=== PATIENT | male | born 1945 | race Caucasian/White ===

== ENCOUNTER → 2018-04-11 | Outpatient (CLI) | payer MEDICARE, OTHER ==
[2018-04-11 19:42] LABS: BASO # 0.1 10^3/uL (0.0-0.2); BASO % 1.3 % (0.0-1.0); EOS # 0.4 10^3/uL (0.0-0.50); HEMATOCRIT 44.1 % (42.0-52.0); HEMOGLOBIN 15.1 g/dl (13.5-17.5); IMMATURE GRANULOCYTE % 0.4 % (0-3.0); LYMPH # 1.7 10^3/uL (1.5-4.5); LYMPH % 30.6 % (24.0-44.0); MEAN CORPUSCULAR HEMOGLOBIN 32.1 pg (27.0-33.0); MEAN CORPUSCULAR HGB CONC 34.2 g/dl (32.0-36.5); MEAN CORPUSCULAR VOLUME 93.6 fl (80.0-96.0); MONO # 0.5 10^3/uL (0.0-0.8); MONO % 9.8 % (0.0-5.0); NEUTROPHILS # 2.7 10^3/uL (1.8-7.7); NEUTROPHILS % 49.9 % (36.0-66.0); PLATELET COUNT, AUTOMATED 215 10^3/uL (150-450); RED BLOOD COUNT 4.71 10^6/uL (4.30-6.10); RED CELL DISTRIBUTION WIDTH 12.1 % (11.5-14.5); WHITE BLOOD COUNT 5.5 10^3/uL (4.0-10.0)
[2018-04-11 20:04] LABS: ALBUMIN 3.8 GM/DL (3.2-5.2); ALBUMIN/GLOBULIN RATIO 1.19 (1.00-1.93); ALKALINE PHOSPHATASE 70 U/L (45-117); ALT/SGPT 24 U/L (12-78); ANION GAP 6 MEQ/L (8-16); AST/SGOT 17 U/L (7-37); BILIRUBIN,DIRECT < 0.1 MG/DL (0.0-0.2); BILIRUBIN,TOTAL 0.5 MG/DL (0.2-1.0); BLOOD UREA NITROGEN 22 MG/DL (7-18); CALCIUM LEVEL 8.8 MG/DL (8.8-10.2); CARBON DIOXIDE LEVEL 28 MEQ/L (21-32); CHLORIDE LEVEL 108 MEQ/L (98-107); CREATININE FOR GFR 1.09 MG/DL (0.70-1.30); GLOMERULAR FILTRATION RATE > 60.0 (>42); GLUCOSE, FASTING 77 MG/DL (70-100); POTASSIUM SERUM 4.5 MEQ/L (3.5-5.1); SODIUM LEVEL 142 MEQ/L (136-145)
== END ==
LOC: M WUC 14:56
DX: I10 Essential (primary) hypertension (principal)
CPT/HCPCS: 82248

== ENCOUNTER → 2019-04-21 | Outpatient (CLI) | payer MEDICARE, OTHER ==
[2019-04-21 12:59] LABS: ALBUMIN 3.7 GM/DL (3.2-5.2); ALT/SGPT 29 U/L (12-78); BILIRUBIN,TOTAL 0.4 MG/DL (0.2-1.0); BLOOD UREA NITROGEN 22 MG/DL (7-18); CARBON DIOXIDE LEVEL 28 MEQ/L (21-32); CHLORIDE LEVEL 109 MEQ/L (98-107); CHOLESTEROL LEVEL 251 MG/DL (<200); CHOLESTEROL RISK RATIO 4.048 (<5); CREATININE FOR GFR 1.24 MG/DL (0.70-1.30); GLOMERULAR FILTRATION RATE > 60.0 (>42); GLUCOSE, FASTING 97 MG/DL (70-100); HDL CHOLESTEROL 62 MG/DL (>40); LDL CHOLESTEROL 143 MG/DL (<100); NON-HDL-C 189 MG/DL; POTASSIUM SERUM 4.9 MEQ/L (3.5-5.1); SODIUM LEVEL 140 MEQ/L (136-145); TRIGLYCERIDES LEVEL 229 MG/DL (<150)
== END ==
LOC: M WUC 08:57
PROVIDERS: ATTEND Physician Assistant
DX: I10 Essential (primary) hypertension (principal)

== ENCOUNTER → 2021-02-24 | Outpatient (CLI) | payer MEDICARE, OTHER ==
[2021-02-24 16:31] LABS: ALBUMIN 3.4 GM/DL (3.2-5.2); PERCENT SATURATION 34.4 % (19.7-50.0)
== END ==
LOC: M WUC 10:57
PROVIDERS: ATTEND Orthopaedic Surgery
DX: M25.569 Pain in unspecified knee (principal); Z01.818 Encounter for other preprocedural examination; M17.10 Unilateral primary osteoarthritis, unspecified knee

== ENCOUNTER → 2021-03-03 | Outpatient (REF) | payer MEDICARE, OTHER ==
[2021-03-03 17:18] LABS: APPEARANCE, URINE CLEAR (CLEAR); BACTERIA, URINE AUTO NEGATIVE (NEGATIVE); BILIRUBIN, URINE AUTO NEGATIVE (NEGATIVE); BLOOD, URINE BLOOD NEGATIVE (NEGATIVE); COLOR, URINE YELLOW (YELLOW); GLUCOSE, URINE (UA) AUTO NEGATIVE (NEGATIVE); KETONE, URINE AUTO NEGATIVE (NEGATIVE); LEUKOCYTE ESTERASE, URINE AUTO NEGATIVE (NEGATIVE); MUCUS, URINE SMALL (NEGATIVE); NITRITE, URINE AUTO NEGATIVE (NEGATIVE); PROTEIN, URINE AUTO NEGATIVE (NEGATIVE); RBC, URINE AUTO 0 /HPF (0-3); SPECIFIC GRAVITY URINE AUTO 1.015 (1.002-1.035); SQUAMOUS EPITHELIAL CELL UR AU 0 /HPF (0-6); UROBILINOGEN, URINE AUTO 0.2 mg/dL (0.0-2.0); WBC, URINE AUTO 0 /HPF (0-3)
[2021-03-03 17:57] LABS: INR 0.93; PARTIAL THROMBOPLASTIN TIME 32.1 SECONDS (25.9-37.0); PROTHROMBIN TIME 12.8 SECONDS (12.7-14.5)
== END ==
LOC: M LAB REF 15:53
PROVIDERS: ATTEND Internal Medicine
DX: Z01.812 Encounter for preprocedural laboratory examination (principal)

== ENCOUNTER 2021-03-25 19:00 | Emergency (ER) | payer MEDICARE, OTHER ==
[~2021-03-25] VITALS: Ht 170.2 cm; Wt 93.0 kg
[2021-03-25 19:02] VITALS: BP 170/88
--- OUTSIDE RECORDS SUMMARY | 2021-03-25 19:14 | CCD | Continuity of Care Document ---
Author Author Krzysztof WANG DO Organization Unknown Address [address] [address] Phone [phone] Care Team Providers Care Scarfing Machine Operator Name Role Phone Chas Wang DO AUTM [phone] Problems Description No Information Available Social History Type Date Description Comments Sex Unknown ETOH Use Currently consumes alcohol 1-2 g lasses of wine each day Tobacco Use Start: Unknown End: Unknown Patient is a former smoker Smoked 2 packs a day for 10 years. Quite 45 years ago Allergies, Adverse Reactions, Alerts Active Allergies Criticality Reaction | Severity Comments Date Seasonal Unable to assess criticality 03/03/2021 Medications Active Medications SIG Qnty Indications Ordering Provide r Date Trazodone HCL 100mg Tablets take 2 to 3 tablets by mouth at bedtime 30tabs Chas Wang DO 03/03/2021 Hydrochlorothiazide 12.5mg Capsule s take 1 capsule by mouth daily in the morning for high blood pressure 30caps Chas Wang DO 03/03/2021 History Medications Metoprolol Succinate ER 50mg Tablets ER 24HR 1 by mouth every day 90tabs Chas Wang DO 03/03/2021 - 03/03/2021 Immunizations Description No Information Available Vital Signs Date Vital Result Comment 03/03/2021 9:08am BP Systolic 142 mmHg BP Diastolic 88 mmHg Heart Rate 65 /min Height 67 inches 5'7" Weight 200.00 lb O2 % BldC Oximetry 97 % BMI (Body Mass Index) 31.3 kg/m2 Results Test Acquired Date Facility Test Result H/L Range Note PT & Aptt 03/03/2021 [facility] n[facility] [address] [place] [address] [phone] Prothrombin Time 12.8 seconds Normal 12.7-14.5 Inr 0.93 Normal 1 Partial Thromboplastin Time 32.1 seconds Normal 25.9-37.0 Ua Routine 03/03/2021 [facility] n[facility] [address] [place] [address] [phone] Appearance, Urine CLEAR Normal Clear Color, Urine YELLOW Normal Yellow PH,Urine 6.0 units Normal 5.0-9.0 Specific [place] Urine Auto 1.015 Normal 1.002-1.035 Protein, Urine Auto NEGATIVE mg/dL Normal Negative Glucose, Urine (Ua) Auto NEGATIVE mg/dL Normal Negative Ketone, Urine Auto NEGATIVE mg/dL Normal Negative Urobilinogen, Urine Auto 0.2 mg/dL Normal 0.0-2.0 Bilirubin, Urine Auto NEGATIVE Normal Negative Nitrite, Urine Auto NEGATIVE Normal Negative Leukocyte Esterase, Urine Auto NEGATIVE Normal Negative Blood, Urine Blood NEGATIVE Normal Negative WBC, Urine Auto 0 /HPF Normal 0-3 RBC, Urine Auto 0 /HPF Normal 0-3 Bacteria, Urine Auto NEGATIVE Normal Negative Squamous Epithelial Cell Ur AU 0 /HPF Normal 0-6 Mucus, Urine SMALL Normal Negative Hyaline Cast, Urine Auto 0 /LPF Normal 0-1 Laboratory test finding 03/03/2021 [facility] [address] [place] [address] [phone] Urine Culture FULL REPORT IN L <SEE NOTE> Normal 2 Complete Blood Count 03/03/2021 [facility] Professional Bondsman: [place] [address] [phone] WBC 5.2 x10*3/UL 4.1 - 10.9 RBC 5.09 x10*6/UL 4.20 - 6.30 Hemoglobin 16.1 g/dL 12.0 - 18.0 Hematocrit 46.5 % 37.0 - 51.0 MCV 91.5 fL 80.0 - 97.0 MCH 31.6 pg 26.0 - 32.0 MCHC 34.5 g/dL 31.0 - 38.0 RDW 12.4 % 11.6 - 13.7 PLT 211 x10*3/UL 140 - 440 MPV 8.1 FL 7.8 - 11.0 Lymph % 26.5 % 10.0 - 58.5 Mid % 7.9 % 1.7 - 9.3 Neut % 65.6 % 37.0 - 92.0 Lymph # 1.3 x10*3/UL 0.6 - 4.1 Mid # 0.5 x10*3/UL 0.1 - 0.6 Neut # 3.4 x10*3/UL 2.0 - 7.8 Comprehensive Chem Profile 03/03/2021 [facility] Professional Bondsman: [place] [address] [phone] Glucose 100 mg/dL High 74 - 99 3 BUN 16 mg/dL 7 - 18 Creatinine 1.2 mg/dL 0.6 - 1.3 Sodium 140 mEq/L 136 - 145 Potassium 4.5 mEq/L 3.5 - 5.1 Chloride 106 mEq/L 98 - 107 Carbon Dioxide 28 mEq/L 21 - 32 Calcium 9.3 mg/dL 8.5 - 10.1 Alk. Phosphatase 64 mg/dL 46 - 116 Total Bilirubin 0.7 mg/dL 0.2 - 1.0 Ast (Sgot) 17 U/L 15 - 37 Alt (SGPT) 25 U/L 12 - 78 Albumin 3.8 g/dL 3.4 - 5.0 Total Protein 7.1 g/dL 6.4 - 8.2 A/G Ratio 1.15 CALC 1.00 - 1.90 GFR 59 mL/min Low >60 GFR >= 60 mL/min >60 4 Lipid Profile 03/03/2021 [facility] , Professional Bondsman: [place] [address] [phone] Cholesterol 216 mg/dL High 131 - 200 Triglycerides 145 mg/dL 30 - 150 HDL Cholesterol 74 mg/dL High 35 - 60 LDL (Calculated) 113 CALC 50 - 159 1 THERAPUTIC HUMAN INR VALUES INDICATIONS NORMAL RANGES PROPHYLAXIS/TREATMENT OF: VENOUS THROMBOSIS 2.0-3.0 PULMONARY EMBOLISM 2.0-3.0 PREVENTION OF SYSTEMIC EMBOLISM FROM: TISSUE HEART VALVES 2.0-3.0 ACUTE MYOCARDIAL INFARCTION 2.0-3.0 VALVULAR HEART DISEASE 2.0-3.0 ATRIAL FIBRILLATION 2.0-3.0 MECHANICAL VALVES(HIGH RISK) 2.5-3.5 RECURRENT MYOCARDIAL INFARCTION 2.5-3.5 2 FULL REPORT IN LAB NOTES (eC W and Med[facility]). NO GROWTH 3 100-125 mg/dL PRE-DIABET ES/FASTING >126 mg/dL DIABETES/FASTING 4 CHRONIC KIDNEY DISEASE STAGI NG PER NKF STAGE I & II GFR >= 60 NORMAL TO MILDLY DECREASED STAGE III GFR 30-59 MODERATELY DECREASED STAGE IV GFR 15-29 SEVERELY DECREASED STAGE V GFR <15 VERY LITTLE GFR LEFT ESRD GFR <15 ON BMW SALES CONSULTANT Procedures Description No Information Available Medical Devices Description No Information Available Encounters Description No Information Available Assessments Date Code Description Provider 03/03/2021 I10 Essential (primary) hypertension Chas Wang, 03/03/2021 G47.00 Insomnia, unspecified Jimmy Wang, 03/03/2021 Z00.00 Encounter for genera l adult medical examination without abnormal findings Chas Wang, 03/03/2021 Z01.818 Encounter for other preprocedura l examination Chas Wang DO Plan of Treatment Future Appointment(s):* 03/11/2021 9:00 am - Chas Wang DO at [facility] 03/03/2021 - Chas Wang DO* I10 Essential (primary) hypertension* Comments:* Poorly controlled and not at goal today as well as not taking a first line anti-HTN. Will start HCTZ today, he reports briefly trying lisinopril in the past and did not like how it made him feel. Currently taking 25mg qod of metoprolol so okay to not taper, but he will monitor BP and HR at home. Appt next week to f/u. Otherwise basic labs today to estimate ASCVD. * G47.00 Insomnia, unspecified* Comments:* Well controlled on current regimen. * Z00.00 Encounter for general adult medical examination without abnormal findings* Comments:* Cologuard in the spring. Defers AAA and PSA screening. He lives a generally healthy lifestyle. * Z01.818 Encounter for other preprocedural examination* Comments:* Blood work and urine as requested by surgeon, will do formal Pre-op assessment next week and discuss labs being completed today. * All * New Medication:* Trazodone HCL 100 mg - take 2 to 3 tablets by mouth at bedtime * Hydrochlorothiazide 12.5 mg - take 1 capsule by mouth daily in the morning for high blood pressure * Metoprolol Succinate ER 50 mg - 1 by mouth every day Functional Status Description No Information Available Mental Status Description No Information Available Referrals Description No Information Available
--- OUTSIDE RECORDS SUMMARY | 2021-03-25 19:14 | CCD | Continuity of Care Document ---
Author Organization Unknown Address Unknown Phone Unavailable Problems Description No Information Available Social History Type Date Description Comments Sex Unknown Tobacco Use Start: Unknown Never Used Smokeless Tobacco ETOH Use Consumes 1-2 glasses of wine per day Tobacco Use Start: Unknown End: Unknown Patient is a former smoker Quit 45 years ago, prior 1-2 ppd x 10-15 years Recreational Drug Use Never Used Drugs Smoking Status Reviewed: 10/19/20 Patient is a former smoker Qu it 45 years ago, prior 1-2 ppd x 10-15 years Exercise Type/Frequency Exercises regularly maribell y weight lifting Tattoo/Piercing Tattoo Sun Exposure Uses sunscreen in [place] only Seat Belt/Car Seat Always uses seat belt Bike Helmet Never does not ride a bike Smoke Alarms Yes Smoke Alarms Carbon Monoxide Detector: Yes Allergies, Adverse Reactions, Alerts Description No Known Drug Allergies Medications Active Medications SIG Qnty Indications Ordering Provide r Date Trazodone HCL 100mg Tablets take 2 to 3tablets by mouth at bedtime as needed - please dispense Teva brand 180tabs Nicolasa Stark FNP 01/18/2021 Metoprolol Succinate ER 50mg Tablets ER 24HR Take 1 Tablet By Mouth Every Day 30tabs I10 Gale Otoole M.D. 10/08/2015 Aleve 220mg Tablets 1 by mout h qd Unknown Immunizations CPT Code Status Date Vaccine Lot # [id number] Given 04/24/2019 Influenza Virus Vaccine, Lance drivalent,multidose vial [id number] Given 04/24/2018 Influenza Virus Vaccine, Lance drivalent,multidose vial [id number] Given 11/17/2016 Pneumococcal Vaccine [id number] Given 11/15/2015 Prevnar 13 [id number] Refused 09/27/2017 Zostavax Vital Signs Date Vital Result Comment 10/19/2020 2:15pm BP Systolic 196 mmHg BP Diastolic 98 mmHg BP Systolic Recheck 177 mmHg recheck BP Diastolic Recheck 92 mmHg recheck Heart Rate 55 /min Body Temperature 97.5 F Respiratory Rate 16 /min Height 66.25 inches 5'6.25" Weight 216.25 lb Peak Expiratory Flow Rate 431 Estimated Peak Flow Rate [place] Body Weight 142 lb BMI (Body Mass Index) 34.6 kg/m2 04/19/2020 3:51pm BP Systolic 164 mmHg BP Diastolic 85 mmHg BP Systolic Recheck 152 mmHg recheck BP Diastolic Recheck 80 mmHg recheck Heart Rate 55 /min Body Temperature 96.7 F Respiratory Rate 16 /min Height 66.25 inches 5'6.25" Weight 213.25 lb O2 % BldC Oximetry 98 % Peak Expiratory Flow Rate 433 Estimated Peak Flow Rate [place] Body Weight 142 lb BMI (Body Mass Index) 34.2 kg/m2 Results Test Acquired Date Facility Test Result H/L Range Note Laboratory test finding 02/24/2021 [place] [address] [phone] Hemoglobin 15.6 g/dL Normal 13.5-17.5 Albumin 3.4 GM/DL Normal 3.2-5.2 Total Iron Binding Capacit 02/24/2021 [facility] [place], [place] [id number] [phone] Iron (Fe) 94 g/dL Normal 65-175 Total Iron Binding Capacity 273 g/dL Normal 250-450 Percent Saturation 34.4 % Normal 19.7-50.0 Laboratory test finding 02/24/2021 [place] [address] [phone] Ferritin 167 NG/ML Normal 26-388 Procedures Date Code Description Status 10/19/2020 [address] Office/Outpatient Established Mo d MDM 30-39 Min Completed Medical Devices Description No Information Available Encounters Type Date Location Provider Dx Diagnosis Office Visit 10/19/2020 2:30p Main Office Gale Otoole M.D. I 10 Essential (primary) hypertension G47.00 Insomnia, unspecified Assessments Date Code Description Provider 10/19/2020 I10 Essential (primary) hypertension Gale Otoole M.D. 10/19/2020 G47.00 Insomnia, unspecified Gale Otoole M.D. Plan of Treatment 10/19/2020 - Gale Otoole M.D.* I10 Essential (primary) hypertension* Comments:* discussed adding lisinorpil, advised he is not controlled enough for knee replacement in the fall. States previosuly when he was on lisinopril he took it only for 3 days but stopped because he didnt sleep with it. 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 WE have discussed previously at length that his sleep pattern is expected to change as he ages and hes not likely to get 8 hours of uninterrupted sleep a night. He has previously requested lorazepam and Ambien for sleep and we have discussed that this is only a short term solution. At this time will continue the Trazodone, however patient was advised that by taking meds the way he is he has trained his body to expect meds when he wakes at 3AM. Advised him to break the habit. Goals 10/19/2020 - Gale Otoole M.D.* I10 Essential (primary) hypertension* Blood Pressure not to goal. Monitor it out of the office and bring a list of readings to the follow up appointment. Notify the office if Blood pressure is consistently higher than 140/90. Functional Status Functional Condition Comment Date Status Independent with all IADL's Acti ve Bifocal glasses Active Independent with all ADL's Activ e Complete lower and upper and lower dentures Active Mental Status Mental Condition Comment Date Status None Active Referrals Description No Information Available
--- OUTSIDE RECORDS SUMMARY | 2021-03-25 19:14 | CCD | Continuity of Care Document ---
Author Author Krzysztof WANG DO Organization Unknown Address [address] [address] Phone [phone] Care Team Providers Care Oil Burner Name Role Phone Chas Wang DO AUTM [phone] Problems Description No Information Available Social History [...] Result H/L Range Note Laboratory test finding 03/03/2021 [facility] [address] [place], [place] [id number] [phone] Urine Culture <pending> Complete Blood Count 03/03/2021 [facility] Antique Furniture Repairer: [place] [address] [phone] WBC 5.2 x10*3/UL 4.1 - 10.9 RBC [...] 2.0 - 7.8 Comprehensive Chem Profile 03/03/2021 [facility] Antique Furniture Repairer: [place] [address] [phone] Glucose 100 mg/dL High 74 - 99 1 BUN 16 mg/dL 7 - 18 Creatinine [...] Low >60 GFR >= 60 mL/min >60 2 Lipid Profile 03/03/2021 [facility] Antique Furniture Repairer: [place] [address] [phone] Cholesterol 216 mg/dL High 131 - 200 Triglycerides 145 mg/dL 30 - 150 HDL Cholesterol 74 mg/dL High 35 - 60 LDL (Calculated) 113 CALC 50 - 159 1 100-125 mg/dL PRE-DIABET ES/FASTING >126 mg/dL DIABETES/FASTING 2 CHRONIC KIDNEY DISEASE STAGI NG PER NKF STAGE I & II GFR >= 60 NORMAL TO MILDLY DECREASED STAGE III GFR 30-59 MODERATELY DECREASED STAGE IV GFR 15-29 SEVERELY DECREASED STAGE V GFR <15 VERY LITTLE GFR LEFT ESRD GFR <15 ON GOLD CHARMER Procedures Description No Information Available Medical Devices Description No Information Available Encounters Description No Information Available Assessments Date Code Description Provider 03/03/2021 I10 Essential (primary) hypertension Chas Wang DO 03/03/2021 G47.00 Insomnia, unspecified Jimmy Wang DO 03/03/2021 Z00.00 Encounter for genera l adult medical examination without abnormal findings Chas Wang DO 03/03/2021 Z01.818 Encounter for other preprocedura l examination Chas Wang DO Plan of Treatment Future Appointment(s):* 03/11/2021 9:00 am - Chas Wang DO at [facility] 03/03/2021 - Chas Wang DO* [...]
--- OUTSIDE RECORDS SUMMARY | 2021-03-25 19:14 | CCD | Continuity of Care Document ---
Author Author Krzysztof WANG DO Organization Unknown Address [address] [address] Phone [phone] Care Team Providers Care Cottage Supervisor Name Role Phone Chas Wang DO AUTM [phone] Problems Description No Information Available Social History Type Date Description Comments Sex Unknown ETOH Use Currently consumes alcohol 1-2 g lasses of wine each day Tobacco Use Start: Unknown End: Unknown Patient is a former smoker Smoked 2 packs a day for 10 years. Quite 45 years ago Allergies and adverse reactions Active Allergies Criticality Reaction | Severity Comments Date Seasonal Unable to assess criticality 03/03/2021 Medications Active Medications SIG Qnty Indications Ordering Provide r Date Amlodipine Besylate 5mg Tablets 1 by mouth every day 30tabs Chas Wang DO 03/11/20 21 Trazodone HCL 100mg Tablets take 2 to 3 tablets by mouth at bedtime 30tabs Chas Wang DO 03/03/2021 Metoprolol Tartrate 25mg Tablets 1/2 tablet every other day Unknown 0 History Medications Metoprolol Succinate ER 50mg Tablets ER 24HR 1 by mouth every day 90tabs Chas Wang DO 03/03/2021 - 03/03/2021 Hydrochlorothiazide 12.5mg Capsule s take 1 capsule by mouth daily in the morning for high blood pressure 30caps Chas Wang DO 03/03/2021 - 03/11/2021 Immunizations Description No Information Available Vital Signs Date Vital Result Comment 03/11/2021 8:51am BP Systolic 160 mmHg BP Diastolic 84 mmHg Heart Rate 66 /min Height 67 inches 5'7" Weight 201.00 lb O2 % BldC Oximetry 96 % RM Air BMI (Body Mass Index) 31.5 kg/m2 03/03/2021 9:08am BP Systolic 142 mmHg BP Diastolic 88 mmHg Heart Rate 65 /min Height 67 inches 5'7" Weight 200.00 lb O2 % BldC Oximetry 97 % BMI (Body Mass Index) 31.3 kg/m2 Results Test Acquired Date Facility Test Result H/L Range Note PT & Aptt 03/03/[address] [address] [phone] Prothrombin Time 12.8 seconds Normal 12.7-14.5 Inr 0.93 Normal 1 Partial Thromboplastin Time 32.1 seconds Normal 25.9-37.0 Ua Routine 03/03/[address] [address] [phone] Appearance, Urine CLEAR Normal Clear Color, Urine YELLOW Normal Yellow PH,Urine 6.0 units Normal 5.0-9.0 Specific [place] Urine Auto 1.015 Normal 1.002-1.035 Protein, Urine [...] /LPF Normal 0-1 Laboratory test finding 03/03/2021 [facility] [address] [place] [address] [phone] Urine Culture FULL REPORT IN L <SEE NOTE> Normal 2 Complete Blood Count 03/03/2021 [facility] Stenotypist: [place] [address] [phone] WBC 5.2 x10*3/UL 4.1 - 10.9 RBC [...] 2.0 - 7.8 Comprehensive Chem Profile 03/03/2021 [facility], Stenotypist: [place] [address] [phone] Glucose 100 mg/dL High 74 - 99 [...] 60 mL/min >60 4 Lipid Profile 03/03/2021 [facility] , Stenotypist: [place] [address] [phone] Cholesterol 216 mg/dL High 131 - 200 [...] LITTLE GFR LEFT ESRD GFR <15 ON CUTTING TABLE OPERATOR FIRST Procedures Description No Information Available Medical Devices Description No Information Available Encounters Description No Information Available Assessments Date Code Description Provider 03/11/2021 Z01.810 Encounter for preprocedural card iovascular examination Chas Wang, 03/11/2021 M17.0 Bilateral primary osteoarthritis of knee Chas Wang, 03/11/2021 I10 Essential (primary) hypertension Chas Wang, 03/03/2021 I10 Essential (primary) hypertension Chas Wang, DO 03/03/2021 G47.00 Insomnia, unspecified Jimmy Wang, DO 03/03/2021 Z00.00 Encounter for genera l adult medical examination without abnormal findings Chas Wang, 03/03/2021 Z01.818 Encounter for other preprocedura l examination Chas Wang DO Plan of Treatment Future Appointment(s):* 05/11/2021 9:40 am - Chas Wang DO at [facility] 03/11/2021 - Chas Wang DO* Z01.810 Encounter for preprocedural cardiovascular examination * M17.0 Bilateral primary osteoarthritis of knee * I10 Essential (primary) hypertension* Comments:* Poorly controlled and not at goal today as well as not taking a first line anti-HTN. Will start amlodipine today, he reports briefly trying lisinopril in the past and did not like how it made him feel, this also occurred with HCTZ. If unable to tolerate amlodipine, then asked they he restart metoprolol perioperatively, until we can discuss. His 10 yr ASCVD risk is over 30%, he defers statin at this time. * All * New Medication:* Amlodipine Besylate 5 mg - 1 by mouth every day Functional Status Description No Information Available Mental Status Description No Information Available Referrals Description No Information Available
--- OUTSIDE RECORDS SUMMARY | 2021-03-25 19:14 | CCD | Continuity of Care Document ---
Author Author Krzysztof WANG DO Organization Unknown Address [address] [address] Phone [phone] Care Team Providers Care Outside Medical Sales Representative Name Role Phone Chas Wang DO AUTM [phone] Problems Description No Information Available Social History [...] the morning for high blood pressure 30caps hCas Wang DO 03/03/2021 - 03/11/2021 Immunizations Description [...] H/L Range Note PT & Aptt 03/03/[address] [address] [phone] Prothrombin Time 12.8 seconds Normal 12.7-14.5 Inr 0.93 Normal 1 Partial Thromboplastin Time 32.1 seconds Normal 25.9-37.0 Ua Routine 03/03/[address] [address] [phone] Appearance, Urine CLEAR Normal Clear Color, Urine YELLOW Normal Yellow PH,Urine 6.0 units Normal 5.0-9.0 Specific [place] Urine Auto 1.015 Normal 1.002-1.035 Protein, Urine [...] /LPF Normal 0-1 Laboratory test finding 03/03/2021 [facility] [address] [place] [address] [phone] Urine Culture FULL REPORT IN L <SEE NOTE> Normal 2 Complete Blood Count 03/03/2021 [facility] Press Operator [employer] Print Shop: [place] [address] [phone] WBC 5.2 x10*3/UL 4.1 - 10.9 RBC [...] 2.0 - 7.8 Comprehensive Chem Profile 03/03/2021 [facility], Press Operator [employer]: [place] [address] [phone] Glucose 100 mg/dL High 74 - 99 [...] 60 mL/min >60 4 Lipid Profile 03/03/2021 [facility] , Press Operator [employer] Print Shop: [place] [address] [phone] Cholesterol 216 mg/dL High 131 - 200 [...] LITTLE GFR LEFT ESRD GFR <15 ON SHOVEL LOG LOADER OPERATOR Procedures Description No Information Available Medical Devices [...] 9:40 am - Chas Wang DO at [facility] 03/11/2021 - Chas Wang DO* [...]
--- OUTSIDE RECORDS SUMMARY | 2021-03-25 19:14 | CCD | Continuity of Care Document ---
Author Author Krzysztof WANG DO Organization Unknown Address [address] [address] Phone [phone] Care Team Providers Care Rn Pacu Name Role Phone Chas Wang DO AUTM [phone] Problems Description No Information Available Social History [...] H/L Range Note Laboratory test finding 03/03/2021 [facility] [address] [place] [address] [phone] Urine Culture <pending> Procedures Description No Information Available Medical Devices [...] 9:00 am - Chas Wang DO at [facility] 03/03/2021 - Chas Wang DO* [...]
--- OUTSIDE RECORDS SUMMARY | 2021-03-25 19:15 | CCD ---
Author Author [facility] Organization [facility] Address Unknown Phone Unavailable Care Team Providers Care Tube Fitter Name Role Phone Xiang, Vesna Beasley MD Unavailable Unavailable Xiang, Vesna Beasley MD Unavailable Unavailable Xiang, Vesna Beasley MD Unavailable Unavailable Xiang, Vesna Beasley MD Unavailable Unavailable Xiang, Vesna Beasley MD Unavailable Unavailable Xiang, Vesna Beasley MD Unavailable Unavailable Xiang, Vesna Beasley MD Unavailable Unavailable Xiang, Vesna Beasley MD Unavailable Unavailable Xiang, Vesna Beasley MD Unavailable Unavailable Xiang, Vesna Beasley MD Unavailable Unavailable Xiang, Vesna Beasley MD Unavailable Unavailable Xiang, Vesna Beasley MD Unavailable Unavailable Xiang, Vesna Beasley MD Unavailable Unavailable Xiang, Vesna Beasley MD Unavailable Unavailable Xiang, Vesna Beasley MD Unavailable Unavailable Xiang, Vesna Beasley MD Unavailable Unavailable Xiang, Vesna Beasley MD Unavailable Unavailable Xiang, Vesna Beasley MD Unavailable Unavailable Xiang, Vesna Beasley MD Unavailable Unavailable Xiang, Vesna Beasley MD Unavailable Unavailable Xiang, Vesna Beasley MD Unavailable Unavailable Xiang, Vesna Beasley MD Unavailable Unavailable Xiang, Vesna Beasley MD Unavailable Unavailable Xiang, Vesna Beasley MD Unavailable Unavailable Xiang, Vesna Beasley MD Unavailable Unavailable Xiang, Vesna Beasley MD Unavailable Unavailable Xiang, Vesna Beasley MD Unavailable Unavailable Xiang, Vesna Beasley MD Unavailable Unavailable Xiang, Vesna Beasley MD Unavailable Unavailable Xiang, Vesna Beasley MD Unavailable Unavailable Xiang, Vesna Beasley MD Unavailable Unavailable Xiang, Vesna Beasley MD Unavailable Unavailable Xiang, Vesna Beasley MD Unavailable Unavailable Xiang, Vesna Beasley MD Unavailable Unavailable Xiang, Vesna Beasley MD Unavailable Unavailable Xiang, Vesna Beasley MD Unavailable Unavailable Xiang, Vesna Beasley MD Unavailable Unavailable Xiang, Vesna Beasley MD Unavailable Unavailable Xiang, Vesna Beasley MD Unavailable Unavailable Xiang, Vesna Beasley MD Unavailable Unavailable Xiang, Vesna Beasley MD Unavailable Unavailable Xiang, Vesna Beasley MD Unavailable Unavailable Xiang, Vesna Beasley MD Unavailable Unavailable Xiang, Vesna Beasley MD Unavailable Unavailable Xiang, Vesna Beasley MD Unavailable Unavailable Xiang, Vesna Beasley MD Unavailable Unavailable Xiang, A Gale LAMAR Unavailable Unavailable Xiang, A Gale LAMAR Unavailable Unavailable Xiang, A Gale LAMAR Unavailable Unavailable Xiang, A Gale LAMAR Unavailable Unavailable Xiang, A Gale MD Unavailable Unavailable Xiang, A Gale MD Unavailable Unavailable Xiang, A Gale MD Unavailable Unavailable Xiang, A Gale MD Unavailable Unavailable Xiang, A Gale MD Unavailable Unavailable Xiang, A Gale MD Unavailable Unavailable Xiang, A Gale MD Unavailable Unavailable Xiang, A Gale MD Unavailable Unavailable Xiang, A Gale MD Unavailable Unavailable Xiang, A Gale MD Unavailable Unavailable Xiang, A Gale MD Unavailable Unavailable Xiang, A Gale MD Unavailable Unavailable Xiang, A Gale MD Unavailable Unavailable Xiang, A Gale MD Unavailable Unavailable Xiang, A Gale MD Unavailable Unavailable Xiang, A Gale MD Unavailable Unavailable Xiang, A Gale MD Unavailable Unavailable Xiang, A Gale MD Unavailable Unavailable Xiang, A Gale MD Unavailable Unavailable Xiang, A Gale MD Unavailable Unavailable Xiang, A Gale LAMAR Unavailable Unavailable Xiang, A Gale LAMAR Unavailable Unavailable Xiang, A Gale LAMAR Unavailable Unavailable Xiang, A Gale LAMAR Unavailable Unavailable Xiang, A Gale LAMAR Unavailable Unavailable Xiang, A Gale LAMAR Unavailable Unavailable Xiang, A Gale LAMAR Unavailable Unavailable Xiang, A Gale LAMAR Unavailable Unavailable Xiang, A Gale LAMAR Unavailable Unavailable Xiang, A Gale LAMAR Unavailable Unavailable Xiang, A Gale LAAMR Unavailable Unavailable Xiang, Vesna Beasley MD Unavailable Unavailable Taniya Ball MD Unavailable Unavailable Taniya Ball MD Unavailable Unavailable Taniya Ball MD Unavailable Unavailable Taniya Ball MD Unavailable Unavailable Taniya Ball MD Unavailable Unavailable Taniya Ball MD Unavailable Unavailable Taniya Ball MD Unavailable Unavailable Taniya Ball MD Unavailable Unavailable Taniya Ball MD Unavailable Unavailable Taniya Ball MD Unavailable Unavailable Taniya Ball MD Unavailable Unavailable Taniya Ball MD Unavailable Unavailable Taniya Ball MD Unavailable Unavailable Taniya Ball MD Unavailable Unavailable Taniya Ball MD Unavailable Unavailable Taniya Ball MD Unavailable Unavailable Taniya Ball MD Unavailable Unavailable Taniya Ball MD Unavailable Unavailable Taniya Ball MD Unavailable Unavailable Taniya Ball MD Unavailable Unavailable Taniya Ball MD Unavailable Unavailable Greenky, S Nirav MD Unavailable Unavailable Greenky, S Nirav MD Unavailable Unavailable Greenky, S Nirav MD Unavailable Unavailable Greenky, S Nirav MD Unavailable Unavailable Greenky, S Nirav MD Unavailable Unavailable Greenky, S Nirav MD Unavailable Unavailable Greenky, S Nirav MD Unavailable Unavailable Greenky, S Nirav MD Unavailable Unavailable Greenky, S Nirav MD Unavailable Unavailable Greenky, S Nirav MD Unavailable Unavailable Greenky, S Nirav MD Unavailable Unavailable Greenky, S Nirav MD Unavailable Unavailable Greenky, S Nirav MD Unavailable Unavailable Greenky, S Nirav MD Unavailable Unavailable Greenky, S Nirav MD Unavailable Unavailable Greenky, S Nirav MD Unavailable Unavailable Greenky, S Nirav MD Unavailable Unavailable Greenky, S Nirav MD Unavailable Unavailable Greenky, S Nirav MD Unavailable Unavailable Greenky, S Nirav MD Unavailable Unavailable Greenky, S Nirav MD Unavailable Unavailable Greenky, S Nirav MD Unavailable Unavailable Greenky, S Nirav MD Unavailable Unavailable Greenky, S Nirav MD Unavailable Unavailable Greenky, S Nirav MD Unavailable Unavailable Greenky, S Nirav MD Unavailable Unavailable Greenky, S Nirav MD Unavailable Unavailable Greenky, S Nirav MD Unavailable Unavailable Greenky, S Nirav MD Unavailable Unavailable Greenky, S Nirav MD Unavailable Unavailable Greenky, S Nirav MD Unavailable Unavailable Greenky, S Nirav MD Unavailable Unavailable Greenky, S Nirav MD Unavailable Unavailable Greenky, S Nirav MD Unavailable Unavailable Greenky, S Nirav MD Unavailable Unavailable Greenky, S Nirav MD Unavailable Unavailable Greenky, S Nirav MD Unavailable Unavailable Greenky, S Nirav MD Unavailable Unavailable Greenky, S Nirav MD Unavailable Unavailable Greenky, S Nirav MD Unavailable Unavailable Greenky, S Nirav MD Unavailable Unavailable Greenky, S Nirav MD Unavailable Unavailable Greenky, S Nirav MD Unavailable Unavailable Greenky, S Nirav MD Unavailable Unavailable Greenky, S Nirav MD Unavailable Unavailable Greenky, S Nirav MD Unavailable Unavailable Greenky, S Nirav MD Unavailable Unavailable Greenky, S Nirav MD Unavailable Unavailable Greenky, S Nirav MD Unavailable Unavailable Greenky, S Nirav MD Unavailable Unavailable Greenky, S Nirav MD Unavailable Unavailable Greenky, S Nirav MD Unavailable Unavailable Greenky, S Nirav MD Unavailable Unavailable Greenky, S Nirav MD Unavailable Unavailable Greenky, S Nirav MD Unavailable Unavailable Greenky, S Nirav MD Unavailable Unavailable Greenky, S Nirav MD Unavailable Unavailable Greenky, S Nirav MD Unavailable Unavailable Greenky, S Nirav MD Unavailable Unavailable Greenky, S Nirav MD Unavailable Unavailable Greenky, S Nirav MD Unavailable Unavailable Greenky, S Nirav MD Unavailable Unavailable Greenky, S Nirav MD Unavailable Unavailable Greenky, S Nirav MD Unavailable Unavailable Greenky, S Nirav MD Unavailable Unavailable Greenky, S Nirav MD Unavailable Unavailable Greenky, S Nirav MD Unavailable Unavailable Greenky, S Nirav MD Unavailable Unavailable Re-disclosure Warning The records that you are about to access may contain information from federally-assisted alcohol or drug abuse programs. If such information is present, then the following federally mandated warning applies: This information has been disclosed to you from records protected by federal confidentiality rules (42 CFR part 2). The federal rules prohibit you from making any further disclosure of this information unless further disclosure is expressly permitted by the written consent of the person to whom it pertains or as otherwise permitted by 42 CFR part 2. A general authorization for the release of medical or other information is NOT sufficient for this purpose. The Federal rules restrict any use of the information to criminally investigate or prosecute any alcohol or drug abuse patient.The records that you are about to access may contain highly sensitive health information, the redisclosure of which is protected by Article 27-F of the [facility] Public Health law. If you continue you may have access to information: Regarding HIV / AIDS; Provided by facilities licensed or operated by the [facility] Office of Mental Health; or Provided by the [facility] Office for People With Developmental Disabilities. If such information is present, then the following [facility] mandated warning applies: This information has been disclosed to you from confidential records which are protected by state law. State law prohibits you from making any further disclosure of this information without the specific written consent of the person to whom it pertains, or as otherwise permitted by law. Any unauthorized further disclosure in violation of state law may result in a fine or senior living sentence or both. A general authorization for the release of medical or other information is NOT sufficient authorization for further disc losure. Family History Family Member Name Family Member Gender Family Member Status Date o f Status Description Data Source(s) Unknown Unknown Problem [facility] ([facility] Unknown Female Problem [facility] ([facility]) Encounters Encounter Providers Location Date Indications Data Source(s ) Outpatient Attender: Nirav Ball MDReferrer: Gale floyd MD 03/16/2021 05:07:46 PM EDT [facility] Recurring Patient Attender: Nirav Ball MDReferrer: Gale Clark ams, MD 03/16/2021 01:22:29 PM EDT [facility] Rec[facility] Patient Attender: Nirav Ball MDReferrer: Gale Clark ams, MD 02/23/2021 06:17:47 AM EDT [facility] Outpatient Attender: Nirav Ball MDReferrer: Gale floyd MD 02/01/2021 06:57:35 AM EDT [facility] Recurring Patient Attender: Nirav Ball MDReferrer: Gale Clark ams, MD 01/31/2021 01:18:23 PM EDT [facility] Recurring Patient Attender: Nirav Ball MDReferrer: Gale Clark ams, MD 01/31/2021 01:13:35 PM EDT [facility] Recurring Patient Attender: Nirav Ball MDReferrer: Gale Clark ams, MD 01/27/2021 03:33:02 PM EDT [facility] Recurring Patient Attender: Nirav Ball MDReferrer: Gale Clark ams, MD 01/27/2021 03:28:53 PM EDT [facility] Outpatient Attender: Gale Otoole MD Main Office 10/19/2020 02:30:0 0 PM EDT [facility] ([facility] Outpatient Attender: Gale Otoole MD Main Office 04/19/2020 02:30:0 0 PM EST [facility] ([facility] Immunizations Vaccine Date Status Description Data Source(s) COVID-19 VACCINE Moderna 08/23/2020 12:00:00 AM EDT completed [facility] Vaccine Series Complete: YESThis Data wa s Submitted to [facility] Via [employer]. COVID-19 VACCINE, MRNA-1273, LNP-S (MODERNA)/PF 08/23/2020 1 2:00:00 AM EDT completed [facility] COVID-19 VACCINE Moderna 07/23/2020 12:00:00 AM EST completed [facility] Vaccine Series Complete: NOThis Data was Submitted to [facility] Via [employer]. COVID-19 VACCINE, MRNA-1273, LNP-S (MODERNA)/PF 07/23/2020 1 2:00:00 AM EST completed [facility] Medications Medication Brand Name Start Date Product Form Dose Route Admi nistrative Instructions Pharmacy Instructions Status Indications Reaction Description Data Source(s) Amlodipine 5 MG Oral Tablet Amlodipine Besylate 03/11/2021 12:00:00 A M EDT ORAL active [facility] ([facility]) 24 HR metoprolol succinate 50 MG Extended Release Oral Tablet Metoprolol Succinate ER 03/03/2021 12:00:00 AM EDT ORAL completed [facility] ([facility]) Hydrochlorothiazide 12.5 MG Oral Capsule Hydrochlorothiazide 03/03/2021 12:00:00 AM EDT ORAL completed [facility] ([facility]) Trazodone Hydrochloride 100 MG Oral Tablet Trazodone HCL 03/03/2021 12:00:00 AM EDT ORAL active [facility] ([facility]) Trazodone Hydrochloride 100 MG Oral Tablet Trazodone HCL 01/18/2021 12:00:00 AM EDT ORAL active [facility] ([facility] Insurance Providers Payer name Policy type / Coverage type Policy ID Covered libertarian ID Covered libertarian's relationship to quiroga Policy [place] Plan Information [employer] [id number] Lali [id number] MEDICARE [id number] Lali [id number] A [employer] (pr) Medigap Part B [id number] Self [id number] [employer] (pr) Medigap Part B [id number] Self [id number] DME Jurisdiction A [facility] C [id number] SELF [id number] Medicare C [id number] SELF [id number] A DME A [place] C [id number] SELF [id number] Medicare C [id number] SELF [id number] Medicare C [id number] SELF [id number] A DME Jurisdiction A NHIC C [id number] SELF [id number] [place] [id number] Self 0 [id number] Medicare [place] Medicare Primary [id number] Self [id number] Medicare [place] Medicare Primary [id number] Self [id number] [employer] / UMR F [id number] SELF [id number] 2 [employer] (pr) Medigap Part B [id number] [id number] Self [id number] UMR F [id number] SELF [id number] UMR F [id number] SELF [id number] UMR F [id number] SELF [id number] 0 [employer] Medigap Part B [id number] 08.0 Self [id number] [place] Medicare Primary [id number] Self [id number] [employer] Medigap Part B [id number] 08.0 Self [id number] Medicare [place] Medicare Primary [id number] Self [id number] [employer] Medigap Part B [id number] Self Medicare [place] Medicare Primary [id number] Self [employer] (pr) Medigap Part B [id number] Self Medicare [place] Primary [id number] Self [employer] [id number] SP [id number] MEDICARE [id number] SP [id number] [id number] [employer] [id number] SP [id number] [facility] [id number] SP [id number] Umr Medigap Part B [id number] Self [id number] Medicare [place] Medicare Primary [id number] Self [id number] r Medigap Part B [id number] 08.0 Self [id number] Medicare [place] Medicare Primary [id number] Self [id number] r Medigap Part B [id number] 08.0 Self [id number] Medicare [place] Medicare Primary [id number] Self [id number] MEDICARE [id number] SP [id number] A r Medigap Part B [id number] 08.0 Self [id number] Medicare [place] Medicare Primary [id number] Self [id number] [employer] Medigap Part B [id number] 08.0 Self [id number] Medicare [place] Medicare Primary [id number] Self [id number] Medicare Dme Supplies Medigap Part B [id number] Self [id number] Medicare Dme Supplies Medigap Part B [id number] Self [id number] Medicare Dme Supplies Medigap Part B [id number] Self [id number] [facility] [id number] 08.0 Self [id number] Medicare [place] Medicare Primary [id number] Self [id number] Problems, Conditions, and Diagnoses No Information Surgeries/Procedures Procedure Description Date Indications Data Source(s) OFFICE OUTPATIENT VISIT 25 MINUTES 10/19/2020 12:00:00 AM EDT [facility] ([facility] Results ID Date Data Source [id number] 03/16/2021 05:07:46 PM EDT [facility]: Celina LeDOB: 1945Provider: Lida Ball: 03/16/2021 Reason For VisitCelina Le is here today for Right Knee. Patient denies any symptoms of or pending results for COVID 19 or contact with anyone with COVID 19. Celina had his second Covid vaccine on 09/2020. Celina Le is here for a history and physical. Surgery Description: RTKA. Expected DOS: 03/21/2021. Patient is retired. AssessmentREASON FOR VISIT:Upcoming right total knee replacement This 75-year-old male had his left knee done seven years ago, with a good result. His right knee has become increasingly stiff and painful. It interferes with activities of daily living. X-rays confirm severe tricompartmental osteoarthritis of the right knee.PAST MEDICAL HISTORY:Please see intake. Hypertension. Left total knee replacement seven years ago. Right knee scope in 1992. The rest of the history is as per the intake. He is a Religion and does not want any blood products.PHYSICAL EXAMINATION:He is 5'7 and weighs 200 pounds. He is alert, awake and oriented, with appropriate mood and affect. No edema or varicosities. Pulses are intact. Sensory and motor are fineLeft knee motion is from 0 to 140, with a healed incision.The right knee has an impressive varus deformity of about 12 degrees, with 2+ medial laxity. Motion is from about +5 to 115. Good motion of the hip. No effusion. Skin is fine. X-RAYS:X-rays, taken previously, are impressive for lnxy-eb-xoqe medial compartment arthritis, calcification under the MCL and lateralization of the tibia.IMPRESSION:Severe primary/secondary osteoarthritis of the right knee, for a right total knee replacement, to be done as an outpatient. He viewed the video and had no specific questions. We talked about the anesthesia, wound closure and therapy. We talked about risks, including, but not limited to remove chance of infection, blood clot, stiffness and loosening, .etc. He read and signed the permit. I will see him there. I asked the patient, after viewing the video, about any further questions or concerns. The patient verbalized full understanding of the potential risks, benefits, and alternative to the proposed procedure. The patients questions about total knee replacement were reviewed with me and answers provided. Plan Start: Celecoxib 200 MG Oral Capsule (CeleBREX); TAKE 1 CAPSULE Every twelve hours Rx By: Nirav Ball; Dispense: 14 Days ; #:28 Capsule; Refill: 0;For: Preoperative examination; CAROL = N; Verified Transmission to [facility]; Msg to Pharmacy: Begin the morning of Post Op Day #4, after Toradol has been discontinued; Last Updated By: Israel Linn; 03/16/2021 1:47:48 PM Start: Hibiclens 4 % External Liquid; USE DIRECTED Rx By: Nirav Ball; Dispense: 0 Days ; #:2 X 118 ML Bottle; Refill: 0;For: Preoperative examination; CAROL = N; Verified Transmission to [facility]; Msg to Pharmacy: Use as directed per instruction sheet for total of 2 showers: 1 shower night before surgery and 1 shower morning of surgery; Last Updated By: [facility]Palm; 03/16/2021 1:47:49 PM Start: Ketorolac Tromethamine 10 MG Oral Tablet; take 1 tablet every 8 hours Rx By: Nirav Ball; Dispense: 4 Days ; #:10 Tablet; Refill: 0;For: Preoperative examination; CAROL = N; Verified Transmission to [facility]; Msg to Pharmacy: Begin the evening of Surgery Day, discontinue after the last dose on Post Op Day #3. First dose to be given intra-operatively.; Last Updated By: Angelina LinnPalm; 03/16/2021 1:47:50 PM Signatures Electronically signed by : Shelbie Ortega, ; Mar 16 2021 2:51PM EST Electronically signed by : Nirav Ball M.D.; Mar 16 2021 5:07PM EST Name Value Range Interpretation Code Description Data Julieth rce(s) Supporting Document(s) ID Date Data Source [id number] 03/16/2021 12:23:00 PM EDT [facility] Name Value Range Interpretation Code Description Data Julieth rce(s) Supporting Document(s) SARS-CoV-2 RNA Resp Ql SABRA+probe Negative [facility] This lab was ordered by [facility] and reported by registracija vozila. ID Date Data Source [id number] 03/03/2021 09:57:00 AM EDT [facility] ([facility]) Name Value Range Interpretation Code Description Data Julieth rce(s) Supporting Document(s) Bacteria identified in Urine by Culture Laboratory test result [facility] ([facility]) FULL REPORT IN LAB NOTES ([facility] and [facility] ). NO GROWTH ID Date Data Source [id number] 03/03/2021 09:57:00 AM EDT [facility] ([facility]) Name Value Range Interpretation Code Description Data Julieth rce(s) Supporting Document(s) Appearance, Urine Laboratory test result [facility] ([facility]) Color, Urine Laboratory test result MEDE NT ([facility]) Specific [place] Urine Auto 1.015 1.002-1.035 [facility] ([facility]) Protein, Urine Auto Laboratory test [facility] PH,Urine 6.0 units 5.0-9.0 [facility] ([facility]) Glucose, Urine (Ua) Auto Laboratory test result [facility] Ketone, Urine Auto Laboratory test result [facility] Bilirubin, Urine Auto Laboratory test result [facility] Urobilinogen, Urine Auto 0.2 mg/dL 0.0-2.0 [facility] T [facility] Nitrite, Urine Auto Laboratory test result [facility] Leukocyte Esterase, Urine Auto [facility] Blood, Urine Blood [facility] RBC, Urine Auto 0 /HPF 0-3 [facility] ([facility]) WBC, Urine Auto 0 /HPF 0-3 [facility] ([facility]) Bacteria, Urine Auto Laboratory test result [facility] Squamous Epithelial Cell Ur AU 0 /HPF 0-6 [facility] Mucus, Urine Laboratory test result [facility] Hyaline Cast, Urine Auto 0 /LPF 0-1 [facility] ID Date Data Source [id number] 03/03/2021 09:57:00 AM EDT [facility] Name Value Range Interpretation Code Description Data Julieth rce(s) Supporting Document(s) Prothrombin Time 12.8 s 12.7-14.5 [facility] Inr 0.93 [facility] ([facility]) THERAPUTIC HUMAN INR VALUES INDICATIONS NORMAL RANGES PROPHYLAXIS/TREATMENT OF: VENOUS THROMBOSIS 2.0-3.0 PULMONARY EMBOLISM 2.0-3.0 PREVENTION OF SYSTEMIC EMBOLISM FROM: TISSUE HEART VALVES 2.0-3.0 ACUTE MYOCARDIAL INFARCTION 2.0-3.0 VALVULAR HEART DISEASE 2.0-3.0 ATRIAL FIBRILLATION 2.0-3.0 MECHANICAL VALVES(HIGH RISK) 2.5-3.5 RECURRENT MYOCARDIAL INFARCTION 2.5-3.5 Partial Thromboplastin Time 32.1 s 25.9-37.0 [facility] ([facility]) ID Date Data Source [id number] 03/03/2021 09:55:00 AM EDT [facility] ([facility]) Name Value Range Interpretation Code Description Data Julieth rce(s) Supporting Document(s) Triglyceride [Mass/volume] in Serum or Plasma 145 mg/dL 30-150 [facility] ([facility]) Cholesterol in HDL [Mass/volume] in Serum or Plasma 74 mg/dL 35-60 [facility] [facility] Cholesterol [Mass/volume] in Serum or Plasma 216 mg/dL 131-200 [facility] ([facility]) Cholesterol in LDL [Mass/volume] in Serum or Plasma by calcu lation 113 CALC 50-159 [facility] ([facility]) ID Date Data Source [id number] 03/03/2021 09:55:00 AM EDT [facility] ([facility]) Name Value Range Interpretation Code Description Data Julieth rce(s) Supporting Document(s) Glucose [Mass/volume] in Serum or Plasma 100 mg/dL 74-99 [facility] ([facility]) 100-125 mg/dL PRE-DIABETES/FASTING >126 mg/dL DIABETES/FASTING Urea nitrogen [Mass/volume] in Serum or Plasma 16 mg/dL 7-18 [facility] ([facility]) Creatinine 1.2 mg/dL 0.6-1.3 [facility] Sodium [Moles/volume] in Serum or Plasma 140 meq/L 136-145 [facility] ([facility]) Potassium [Moles/volume] in Serum or Plasma 4.5 meq/L 3.5-5.1 [facility] ([facility]) Chloride [Moles/volume] in Serum or Plasma 106 meq/L 98-107 [facility] ([facility]) Carbon dioxide, total [Moles/volume] in Serum or Plasma 28 meq/L 21 -32 [facility] ([facility]) Alkaline phosphatase isoenzyme [Units/volume] in Serum or Pl asma 64 mg/dL 46-116 [facility] ([facility]) Calcium [Mass/volume] in Serum or Plasma 9.3 mg/dL 8.5-10.1 [facility] ([facility]) Total Bilirubin 0.7 mg/dL 0.2-1.0 [facility] ([facility]) Aspartate aminotransferase [Enzymatic activity/volume] in Serum or Plasma 17 U/L 15-37 [facility] ([facility] ) Alanine aminotransferase [Enzymatic activity/volume] in Seru m or Plasma 25 U/L 12-78 [facility] ([facility]) Albumin [Mass/volume] in Serum or Plasma 3.8 g/dL 3.4-5.0 [facility] ([facility]) A/G Ratio 1.15 CALC 1.00-1.90 [facility] [facility] Proteinase 3 Ab [Units/volume] in Serum 7.1 g/dL 6.4-8.2 [facility] ([facility]) Glomerular filtration rate/1.73 sq M pre dicted among blacks [Volume Rate/Area] in Serum or Plasma by Creatinine-based formula (MDRD) Laboratory test result [facility] [facility] <content>CHRONIC KIDNEY DISEASE STAGING PER NK[facility]</content>
<content></content>
<content>STAGE I & II GFR >= 60 NORMAL TO MILDLY DECREASED</content>
<content>STAGE III GFR 30-59 MODERATELY DECREASED</content>
<content>STAGE IV GFR 15-29 SEVERELY DECREASED</content>
<content>STAGE V GFR <15 VERY LITTLE GFR LEFT</content>
<content>ESRD GFR <15 ON LEARNING OFFICER</content>
<content></content> Glomerular filtration rate/1.73 sq M pre dicted among non-blacks [Volume Rate/Area] in Serum or Plasma by Creatinine-based formula (MDRD) 59 mL/min [facility] ID Date Data Source [id number] 03/03/2021 09:55:00 AM EDT [facility] ([facility]) Name Value Range Interpretation Code Description Data Julieth rce(s) Supporting Document(s) Leukocytes [#/volume] in Blood by Automated count 5.2 x10*3/UL 4.1-10 .9 [facility] ([facility]) Hematocrit [Volume Fraction] of Blood by Automated count 46.5 % 3 7.0-51.0 [facility] ([facility]) Hemoglobin [Mass/volume] in Blood 16.1 g/dL 12.0-18.0 [facility] ([facility]) Erythrocytes [#/volume] in Blood by Automated count 5.09 x10*6/UL 4.2 0-6.30 [facility] ([facility]) MCHC 34.5 g/dL 31.0-38.0 [facility] [facility] MCV 91.5 fL 80.0-97.0 [facility] [facility] MCH 31.6 pg 26.0-32.0 [facility] [facility] MPV 8.1 FL 7.8-11.0 [facility] [facility] Erythrocyte distribution width [Ratio] by Automated count 12.4 % 11.6-13.7 [facility] ([facility]) Platelets [#/volume] in Blood by Automated count 211 x10*3/UL 140-440 [facility] ([facility]) Neut % 65.6 % 37.0-92.0 [facility] [facility] Mid % 7.9 % 1.7-9.3 [facility] [facility] Lymph % 26.5 % 10.0-58.5 [facility] [facility] Lymph # 1.3 x10*3/UL 0.6-4.1 [facility] ([facility]) Neut # 3.4 x10*3/UL 2.0-7.8 [facility] ([facility]) Mid # 0.5 x10*3/UL 0.1-0.6 [facility] ([facility]) ID Date Data Source [id number] 02/24/2021 10:58:00 AM EDT [facility] ([facility] Name Value Range Interpretation Code Description Data Julieth rce(s) Supporting Document(s) Ferritin [Mass/volume] in Serum or Plasma 167 ng/mL 26-388 [facility] ([facility] ID Date Data Source [id number] 02/24/2021 10:58:00 AM EDT [facility] ([facility] Name Value Range Interpretation Code Description Data Julieth rce(s) Supporting Document(s) Total Iron Binding Capacity 273 ug/dL 250-450 [facility] ([facility] Iron (Fe) 94 ug/dL 65-175 [facility] ([facility] Percent Saturation 34.4 % 19.7-50.0 [facility] ([facility] ID Date Data Source [id number] 02/24/2021 10:58:00 AM EDT [facility] ([facility] Name Value Range Interpretation Code Description Data Julieth rce(s) Supporting Document(s) Hemoglobin [Mass/volume] in Blood 15.6 g/dL 13.5-17.5 [facility] ([facility] Albumin [Mass/volume] in Serum or Plasma 3.4 GM/DL 3.2-5.2 [facility] ([facility] ID Date Data Source [id number] 02/01/2021 06:57:35 AM EDT [facility] PCName: Celina LeDOB: 1945Provider: Lida Ball: 01/31/2021 Reason For VisitCelina Le is here today for Right Knee. Patient denies any symptoms of or pending results for COVID 19 or contact with anyone with COVID 19. Celina had his second Covid vaccine on 09/2020. Patient reports that he has had issues with right knee x years. He had injections about 3 years ago without relief. He states he notes pain on a daily basis with any activity, walking. Has tried Advil but stopped due to rise in BP. Not using assist device. Patient is retired. AssessmentREASON FOR VISIT:Uncle regarding his right knee.I did this 75-year-old male's left knee seven year ago. He did nicely with that. 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 He has increasingly disabling pain in his right knee. He had arthritis in his right knee when I did his left knee but he somehow sucked it up all these years. He tr ied Advil but it affected his blood pressure. He continues to work out on a daily basis.PAST MEDICAL HISTORY:Please see intake. Hypertension. No cardiac issues. Right knee scope in the past, done by [facility]. No left knee scope. He is a Religion.PHYSICAL EXAMINATION:He is 5'7 and weighs 200 pounds. He is alert, awake and oriented, with appropriate mood and affect. Lower extremities have good pulses. Sensory and motor are intact. No edema or varicosities. Examination of the left knee: Motion is from 0 to 125 degrees.Examination of the right knee: Varus of about 11 or 12 degrees. 2+ medial laxity. Motion is from +3 or +4 to about 115 degrees.Good motion of the hips. Skin is fine. X-RAYS:Standing AP, lateral and Merchant's views of the right knee were ordered, taken and interpreted by me today. They reveal [id number] medial compartment arthritis. There is calcification under the MCL medially. 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 He's ready to get his knee fixed. I think he's a good candidate for an outpatient procedure. We will schedule it and give him all of the information today. I will see him again before the surgery. Plan Albumin; Status:Active; Requested for:[id number]; Perform:Outside Facility; Order Comments:Please fax results to [facility] at [phone]; Due:[id number]; Last Updated By:Karina Ahumada; 01/31/2021 2:31:35 PM;Ordered; For:Joint pain, knee, Preoperative examination, Pr imary osteoarthritis of one knee; Ordered By:Nirav Ball; Ferritin; Status:Active; Requested for:31Jan2021; Perform:Outside Facility; Due:10Feb2021; Last Updated By:Karina Ahumada; 01/31/2021 2:31:35 PM;Ordered; For:Joint pain, knee, Preoperative examination, Primary osteoarthritis of one knee; Ordered By:Nirav Ball; HGB ( Hemoglobin ); Status:Active; Requested for:31Jan2021; Perform:Outside Facility; Due:10Feb2021; Last Updated By:Karina Ahumada; 01/31/2021 2:31:35 PM;Ordered; For:Joint pain, knee, Preoperative examination, Primary osteoarthritis of one knee; Ordered By:Nirav Ball; Iron Panel (IRON TOTAL, % SATURATION, TIBC, UIBC); Status:Active; Requestedfor:31Jan2021; Perform:Outside Facility; Due:10Feb2021; Last Updated By:Karina Ahumada; 01/31/2021 2:31:35 PM;Ordered; For:Joint pain, knee, Preoperative examination, Primary osteoarthritis of one knee; Ordered By:Nirav Ball; X-Ray I Knee - 3 views (XRays were ordered, obtained and interpreted today in theoffice. Indication: pain/dysfunction.); Status:Complete; Done: 31Jan2021 Perform:SOS29; Due:14Feb2021; Last Updated By:Rebeca Collins; 01/31/2021 2:07:38 PM;Ordered; For:Joint pain, knee; Ordered By:Nirav Ball; Weight Bearing Status : Weight bearingLaterality: : Right Physical Therapy (SOS) - Total Joint Pre-Op and Initial Post-Op Physical Therapy Treatment Status: Active Requested for: 31Jan2021 Ordered;For: Joint pain, knee, Preoperative examination, Primary osteoarthritis of one knee; Ordered By: Nirav Ball Performed: Due: 14Feb2021; Last Updated By: Karina Auhmada; 01/31/2021 2:31:35 PMScheduling of Initial Post-Op PT: : Knee: Please start initial post-op PT no later than 3-5 days post-op.Surgical Procedure and Date : [facility] Protocol - TJ : Evaluate and treat as indicated, per protocol or as previously written.Pre-Op PT - TJ : 1-2 visits per Total Joint Replacement protocol. Teach HEP.Laterality and Body Part: : Right Knee Signatures Electronically signed by : Shelbie Ortega, ; Jan 31 2021 3:48PM EST Electronically signed by : Nirav Ball M.D.; Feb 01 2021 6:57AM EST Name Value Range Interpretation Code Description Data Julieth rce(s) Supporting Document(s) Procedure Social History Code Duration Value Status Description Data Source(s ) Smoking 10/19/2020 12:00:00 AM EDT Patient is a former smoker completed Patient is a former smoker [facility] ([facility] Vital Signs ID Date Data Source UNK Name Value Range Interpretation Code Description Data Source(s) Systolic blood pressure 160 mm[Hg] 160 mm[Hg] [facility] ([facility]) Diastolic blood pressure 84 mm[Hg] 84 mm[Hg] [facility] ([facility] [facility]) Heart rate 66 /min 66 /min [facility] ([facility]) Body height 67 [in_i] 67 [in_i] [facility] ([facility]) 5'7" Body weight 201.00 [lb_av] 201.00 [lb_av] [facility] ([facility] [facility]) Oxygen saturation in Arterial blood by Pulse oximetry 96 % 96 % [facility] ([place] [facility]) Air Body mass index (BMI) [Ratio] 31.5 kg/m2 31.5 k g/m2 [facility] ([place] [facility]) Body height 67 [in_i] 67 [in_i] [facility] ([facility]) 5'7" Body weight 200.00 [lb_av] 200.00 [lb_av] [facility] ([facility] [facility]) Oxygen saturation in Arterial blood by Pulse oximetry 97 % 97 % [facility] ([place] [facility]) Body mass index (BMI) [Ratio] 31.3 kg/m2 31.3 k g/m2 [facility] ([place] [facility]) Systolic blood pressure 142 mm[Hg] 142 mm[Hg] [facility] ([place] [facility]) Diastolic blood pressure 88 mm[Hg] 88 mm[Hg] [facility] ([place] [facility]) Heart rate 65 /min 65 /min [facility] ([facility]) Systolic blood pressure 196 mm[Hg] 196 mm[Hg] [facility] Diastolic blood pressure 98 mm[Hg] 98 mm[Hg] [facility] Systolic blood pressure 177 mm[Hg] 177 mm[Hg] [facility] recheck Diastolic blood pressure 92 mm[Hg] 92 mm[Hg] [facility] ([facility] recheck Heart rate 55 /min 55 /min [facility] ([facility] Body temperature 97.5 [degF] 97.5 [degF] [facility] ([facility] Respiratory rate 16 /min 16 /min [facility] ( [facility] Body height 66.25 [in_i] 66.25 [in_i] [facility] ([facility] 5'6.25" Body weight 216.25 [lb_av] 216.25 [lb_av] [facility] ([facility] [place] body weight 142 [lb_av] 142 [lb_av] [facility] ([facility] Body mass index (BMI) [Ratio] 34.6 kg/m2 34.6 k g/m2 [facility] ([facility] Body weight 213.25 [lb_av] 213.25 [lb_av] [facility] ([facility] Body mass index (BMI) [Ratio] 34.2 kg/m2 34.2 k g/m2 [facility] Oxygen saturation in Arterial blood by Pulse oximetry 98 % 98 % [facility] [place] body weight 142 [lb_av] 142 [lb_av] [facility] ([facility] Systolic blood pressure 164 mm[Hg] 164 mm[Hg] [facility] Diastolic blood pressure 85 mm[Hg] 85 mm[Hg] [facility] Systolic blood pressure 152 mm[Hg] 152 mm[Hg] [facility] recheck Diastolic blood pressure 80 mm[Hg] 80 mm[Hg] [facility] recheck Heart rate 55 /min 55 /min [facility] Body temperature 96.7 [degF] 96.7 [degF] [facility] Respiratory rate 16 /min 16 /min [facility] ( [facility] Body height 66.25 [in_i] 66.25 [in_i] [facility] ([facility] 5'6.25"
[2021-03-25] MEDS ORDERED: METO1TAB7 PO (19:24)
[2021-03-25] MEDS ORDERED: OXYC-517 PO (19:24)
--- OUTSIDE RECORDS SUMMARY | 2021-03-26 04:20 | CCD ---
Author [facility] Organization [facility] Address Unknown Phone Unavailable Care Team Providers Care Planning Technician Name Role Phone Xiang, Vesna Beasley MD [...] Xiang, A Gale LAMAR Unavailable Unavailable Xiang, Vesna Beasley MD Unavailable [...] is protected by Article 27-F of the [facility] Public Health law. If you continue you may have access to information: Regarding HIV / AIDS; Provided by facilities licensed or operated by the [facility] Office of Mental Health; or Provided by the [facility] Office for People With Developmental Disabilities. If such information is present, then the following [facility] mandated warning applies: This information has been [...] law may result in a fine or chcf sentence or both. A general authorization for the release of medical or other information is NOT sufficient authorization for further disc losure. Family History Family Member Name Family Member Gender Family Member Status Date o f Status Description Data Source(s) Unknown Unknown Problem [facility] ([facility] Unknown Female Problem [facility] ([facility]) Encounters Encounter Providers Location Date Indications Data Source(s ) Outpatient Attender: Niarv Ball MDReferrer: Gale floyd MD 03/16/2021 05:07:46 PM EDT [facility] Recurring Patient Attender: Nirav Ball MDReferrer: Gale Clark ams, MD 03/16/2021 01:22:29 PM EDT [facility] Rec[facility]ring Patient Attender: Nirav Ball MDReferrer: Gale Clark ams, MD 02/23/2021 06:17:47 AM EDT [facility] Outpatient Attender: Nirav Ball MDReferrer: Gale floyd MD 02/01/2021 06:57:35 AM EDT [facility] Recurring Patient Attender: Nirav Ball MDReferrer: Gale Clark ams, MD 01/31/2021 01:18:23 PM EDT [facility] Recurring Patient Attender: Nirav Ball MDReferrer: Gale Clark ams, MD 01/31/2021 01:13:35 PM EDT [facility] Recurring Patient Attender: Nirav Ball MDReferrer: Gale Clark ams, MD 01/27/2021 03:33:02 PM EDT [facility] Recurring Patient Attender: Nirav Ball MDReferrer: Gale Clark ams, MD 01/27/2021 03:28:53 PM EDT [facility] Outpatient Attender: Gale Otoole MD Main Office 10/19/2020 02:30:0 0 PM EDT [facility] ([facility] Outpatient Attender: Gale Otoole MD Main Office 04/19/2020 02:30:0 0 PM EST [facility] ([facility] Immunizations Vaccine Date Status Description Data Source(s) COVID-19 VACCINE Moderna 08/23/2020 12:00:00 AM EDT completed [facility] Vaccine Series Complete: YESThis Data wa s Submitted to [facility] Via [employer]. COVID-19 VACCINE, MRNA-1273, LNP-S (MODERNA)/PF 08/23/2020 1 2:00:00 AM EDT completed [facility] COVID-19 VACCINE Moderna 07/23/2020 12:00:00 AM EST completed [facility] Vaccine Series Complete: NOThis Data was Submitted to [facility] [employer]. COVID-19 VACCINE, MRNA-1273, LNP-S (MODERNA)/PF 07/23/2020 1 2:00:00 AM EST completed [facility] Medications Medication Brand Name Start Date Product Form Dose Route Admi nistrative Instructions Pharmacy Instructions Status Indications Reaction Description Data Source(s) Amlodipine 5 MG Oral Tablet Amlodipine Besylate 03/11/2021 12:00:00 A M EDT ORAL active [facility] ([facility]) 24 HR metoprolol succinate 50 MG Extended Release Oral Tablet Metoprolol Succinate ER 03/03/2021 12:00:00 AM EDT ORAL completed [facility] ([facility]) Hydrochlorothiazide 12.5 MG Oral Capsule Hydrochlorothiazide 03/03/2021 12:00:00 AM EDT ORAL completed [facility] ([facility]) Trazodone Hydrochloride 100 MG Oral Tablet Trazodone HCL 03/03/2021 12:00:00 AM EDT ORAL active [facility] ([facility]) Trazodone Hydrochloride 100 MG Oral Tablet Trazodone HCL 01/18/2021 12:00:00 AM EDT ORAL active [facility] ([facility] Insurance Providers Payer name Policy type / Coverage type Policy ID Covered green party ID Covered green party's relationship to quiroga Policy Quiroga Plan Information [employer]OMCO [id number] Lali [id number] MEDICARE [id number] Lali [id number] A [facility] (pr) Medigap Part B [id number] Self [id number] [employer] (pr) Medigap Part B [id number] 3333.0 Self [id number] DME Jurisdiction A [facility] C [id number] SELF [id number] Medicare C [id number] SELF [id number] A DME A [place] C [id number] SELF [id number] Medicare C [id number] SELF [id number] Medicare C [id number] SELF [id number] A DME Jurisdiction A NHIC C [id number] SELF [id number] [place] Primary [id number] Self [id number] Medicare [place] Medicare Primary [id number] Self 0 [id number] Medicare [place] Medicare Primary [id number] Self [id number] [place] / UMR F [id number] SELF [id number] 2 [employer] (pr) Medigap Part B [id number] 3333.0 Self [id number] UMR F [id number] SELF [id number] UMR F [id number] SELF [id number] UMR F [id number] SELF [id number] [employer] Medigap Part B [id number] 08.0 Self [id number] Medicare [place] Medicare Primary [id number] Self [id number] [employer] Medigap Part B [id number] 08.0 Self [id number] Medicare [place] Medicare Primary [id number] Self [id number] [place] Medigap Part B [id number] Self Medicare [place] Medicare Primary [id number] Self [place] (pr) Medigap Part B [id number] Self Medicare [place] Medicare Primary [id number] Self [employer]OM[employer] [id number] SP [id number] MEDICARE [id number] SP [id number] POMCO [id number] SP [id number] [facility] [id number] SP [id number] Umr Medigap Part B [id number] Self [id number] [place] Medicare Primary [id number] Self [id number] r Medigap Part B [id number] 08.0 Self [id number] Medicare [place] Medicare Primary [id number] Self [id number] r Medigap Part B [id number] 08.0 Self [id number] Medicare [place] Medicare Primary [id number] Self [id number] MEDICARE [id number] SP [id number] A r Medigap Part B [id number] 08.0 Self [id number] Medicare [place] Medicare Primary [id number] Self [id number] [employer] Medigap Part B [id number] 08.0 Self [id number] Medicare [place] Medicare Primary [id number] Self [id number] Medicare Dme Supplies Medigap Part B [id number] Self [id number] Medicare Dme Supplies Medigap Part B [id number] Self [id number] Medicare Dme Supplies Medigap Part B [id number] Self 0 [id number] [facility] Medig[facility] Part B [id number] 08.0 Self [id number] Medicare [place] Medicare Primary [id number] Self [id number] Problems, Conditions, and Diagnoses No Information Surgeries/Procedures Procedure Description Date Indications Data Source(s) OFFICE OUTPATIENT VISIT 25 MINUTES 10/19/2020 12:00:00 AM EDT [facility] ([facility] Results ID Date Data Source [id number] 03/16/2021 05:07:46 PM EDT [facility] LeDOB: 1945Provider: Lida [...] as per the intake. He is a Holiness and does not want any blood products.PHYSICAL [...] fine. X-RAYS:X-rays, taken previously, are impressive for nqwl-qg-mnou medial compartment arthritis, calcification under the MCL [...] examination; CAROL = N; Verified Transmission to [facility]; Msg to Pharmacy: Begin the morning of Post Op Day #4, after Toradol has been discontinued; Last Updated By: Israel Linn; 03/16/2021 1:47:48 PM Start: Hibiclens 4 % External Liquid; USE DIRECTED Rx By: Nirav Ball; Dispense: 0 Days ; #:2 X 118 ML Bottle; Refill: 0;For: Preoperative examination; CAROL = N; Verified Transmission to [facility]; Msg to Pharmacy: Use as directed per instruction sheet for total of 2 showers: 1 shower night before surgery and 1 shower morning of surgery; Last Updated By: Temitope VOIP DepotPastoraMaichang; 03/16/2021 1:47:49 PM Start: Ketorolac Tromethamine 10 MG Oral Tablet; take 1 tablet every 8 hours Rx By: Nirav Ball; Dispense: 4 Days ; #:10 Tablet; Refill: 0;For: Preoperative examination; CAROL = N; Verified Transmission to [facility]; Msg to Pharmacy: Begin the evening of Surgery Day, discontinue after the last dose on Post Op Day #3. First dose to be given intra-operatively.; Last Updated By: Angelina LinnMaichang; 03/16/2021 1:47:50 PM Signatures Electronically signed by : Shelbie Ortega, ; Mar 16 2021 2:51PM EST Electronically signed by : Nirav Ball M.D.; Mar 16 2021 5:07PM EST Name Value Range Interpretation Code Description Data Julieth rce(s) Supporting Document(s) ID Date Data Source [id number] 03/16/2021 12:23:00 PM EDT [facility] Name Value Range Interpretation Code Description Data Julieth rce(s) Supporting Document(s) SARS-CoV-2 RNA Resp Ql SABRA+probe Negative [facility] This lab was ordered by [facility] and reported by [facility]. ID Date Data Source [id number] 03/03/2021 09:57:00 AM EDT [facility] ([facility]) Name Value Range Interpretation Code Description Data Julieth rce(s) Supporting Document(s) Bacteria identified in Urine by Culture Laboratory test result [facility] ([facility]) FULL REPORT IN LAB NOTES ([facility] and [facility] ). NO GROWTH ID Date Data Source [id number] 03/03/2021 09:57:00 AM EDT [facility] ([facility]) Name Value Range Interpretation Code Description Data Julieth rce(s) Supporting Document(s) Appearance, Urine Laboratory test result [facility] ([facility]) Color, Urine Laboratory test result MEDE NT ([facility]) Specific Jackson Urine Auto 1.015 1.002-1.035 [facility] ([facility]) Protein, Urine Auto Laboratory test result [facility] [facility] PH,Urine 6.0 units 5.0-9.0 [facility] ([facility]) Glucose, Urine (Ua) Auto Laboratory test result [facility] [facility] Ketone, Urine Auto Laboratory test result [facility] [facility] Bilirubin, Urine Auto Laboratory test result [facility] [facility] Urobilinogen, Urine Auto 0.2 mg/dL 0.0-2.0 [facility] T ([place] [facility] Nitrite, Urine Auto Laboratory test result [facility] ([place] [facility] Leukocyte Esterase, Urine Auto Laboratory test result [facility] [facility] Blood, Urine Blood Laboratory test result [facility] [facility] RBC, Urine Auto 0 /HPF 0-3 [facility] ([facility]) WBC, Urine Auto 0 /HPF 0-3 [facility] ([facility]) Bacteria, Urine Auto Laboratory test result [facility] ([place] [facility] Squamous Epithelial Cell Ur AU 0 /HPF 0-6 [facility] [facility] Mucus, Urine Laboratory test result [facility] NT ([place] [facility] Hyaline Cast, Urine Auto 0 /LPF 0-1 [facility] T ([place] [facility] ID Date Data Source [id number] 03/03/2021 09:57:00 AM EDT [facility] Name Value Range Interpretation Code Description Data Julieth rce(s) Supporting Document(s) Prothrombin Time 12.8 s 12.7-14.5 [facility] Inr 0.93 [facility] ([facility]) THERAPUTIC HUMAN INR VALUES INDICATIONS NORMAL RANGES PROPHYLAXIS/TREATMENT OF: VENOUS THROMBOSIS 2.0-3.0 PULMONARY EMBOLISM 2.0-3.0 PREVENTION OF SYSTEMIC EMBOLISM FROM: TISSUE HEART VALVES 2.0-3.0 ACUTE MYOCARDIAL INFARCTION 2.0-3.0 VALVULAR HEART DISEASE 2.0-3.0 ATRIAL FIBRILLATION 2.0-3.0 MECHANICAL VALVES(HIGH RISK) 2.5-3.5 RECURRENT MYOCARDIAL INFARCTION 2.5-3.5 Partial Thromboplastin Time 32.1 s 25.9-37.0 [facility] ([facility]) ID Date Data Source [id number] 03/03/2021 09:55:00 AM EDT [facility] ([facility]) Name Value Range Interpretation Code Description Data Julieth rce(s) Supporting Document(s) Triglyceride [Mass/volume] in Serum or Plasma 145 mg/dL 30-150 [facility] ([facility]) Cholesterol in HDL [Mass/volume] in Serum or Plasma 74 mg/dL 35-60 [facility] ([facility]) Cholesterol [Mass/volume] in Serum or Plasma 216 mg/dL 131-200 [facility] ([facility]) Cholesterol in LDL [Mass/volume] in Serum or Plasma by calcu lation 113 CALC 50-159 [facility] ([facility]) ID Date Data Source [id number] 03/03/2021 09:55:00 AM EDT [facility]) Name Value Range Interpretation Code Description Data Julieth rce(s) Supporting Document(s) Glucose [Mass/volume] in Serum or Plasma 100 mg/dL 74-99 [facility] ([facility]) 100-125 mg/dL PRE-DIABETES/FASTING >126 mg/dL DIABETES/FASTING Urea nitrogen [Mass/volume] in Serum or Plasma 16 mg/dL 7-18 [facility] ([facility]) Creatinine 1.2 mg/dL 0.6-1.3 [facility] Sodium [Moles/volume] in Serum or Plasma 140 meq/L 136-145 [facility] ([facility]) Potassium [Moles/volume] in Serum or Plasma 4.5 meq/L 3.5-5.1 [facility] ([facility]) Chloride [Moles/volume] in Serum or Plasma 106 meq/L 98-107 [facility] ([facility]) Carbon dioxide, total [Moles/volume] in Serum or Plasma 28 meq/L 21 -32 [facility] ([facility]) Alkaline phosphatase isoenzyme [Units/volume] in Serum or Pl asma 64 mg/dL 46-116 [facility] ([facility]) Calcium [Mass/volume] in Serum or Plasma 9.3 mg/dL 8.5-10.1 [facility] ([facility]) Total Bilirubin 0.7 mg/dL 0.2-1.0 [facility]) Aspartate aminotransferase [Enzymatic activity/volume] in Serum or Plasma 17 U/L 15-37 [facility] ) Alanine aminotransferase [Enzymatic activity/volume] in Seru m or Plasma 25 U/L 12-78 [facility] ([facility]) Albumin [Mass/volume] in Serum or Plasma 3.8 g/dL 3.4-5.0 [facility] ([facility]) A/G Ratio 1.15 CALC 1.00-1.90 [facility] [facility] Proteinase 3 Ab [Units/volume] in Serum 7.1 g/dL 6.4-8.2 [facility] ([facility]) Glomerular filtration rate/1.73 sq M pre dicted among blacks [Volume Rate/Area] in Serum or Plasma by Creatinine-based formula (MDRD) Laboratory test result [facility] [facility] <content>CHRONIC KIDNEY DISEASE STAGING PER NKF</content>
<content></content>
<content>STAGE I & II GFR >= 60 NORMAL TO MILDLY DECREASED</content>
<content>STAGE III GFR 30-59 MODERATELY DECREASED</content>
<content>STAGE IV GFR 15-29 SEVERELY DECREASED</content>
<content>STAGE V GFR <15 VERY LITTLE GFR LEFT</content>
<content>ESRD GFR <15 ON CRIMINALIST</content>
<content></content> Glomerular filtration rate/1.73 sq M pre dicted among non-blacks [Volume Rate/Area] in Serum or Plasma by Creatinine-based formula (MDRD) 59 mL/min [facility] [facility] ID Date Data Source [id number] 03/03/2021 09:55:00 AM EDT [facility] ([facility]) Name Value Range Interpretation Code Description Data Julieth rce(s) Supporting Document(s) Leukocytes [#/volume] in Blood by Automated count 5.2 x10*3/UL 4.1-10 .9 [facility] ([facility]) Hematocrit [Volume Fraction] of Blood by Automated count 46.5 % 3 7.0-51.0 [facility] ([facility]) Hemoglobin [Mass/volume] in Blood 16.1 g/dL 12.0-18.0 [facility] ([facility]) Erythrocytes [#/volume] in Blood by Automated count 5.09 x10*6/UL 4.2 0-6.30 [facility] ([facility]) MCHC 34.5 g/dL 31.0-38.0 [facility] [facility] MCV 91.5 fL 80.0-97.0 [facility] [facility] MCH 31.6 pg 26.0-32.0 [facility] [facility] MPV 8.1 FL 7.8-11.0 [facility] [facility] Erythrocyte distribution width [Ratio] by Automated count 12.4 % 11.6-13.7 [facility] ([facility]) Platelets [#/volume] in Blood by Automated count 211 x10*3/UL 140-440 [facility] ([facility]) Neut % 65.6 % 37.0-92.0 [facility] [facility] Mid % 7.9 % 1.7-9.3 [facility] [facility] Lymph % 26.5 % 10.0-58.5 [facility] [facility] Lymph # 1.3 x10*3/UL 0.6-4.1 [facility] ([facility]) Neut # 3.4 x10*3/UL 2.0-7.8 [facility] ([facility]) Mid # 0.5 x10*3/UL 0.1-0.6 [facility] ([facility]) ID Date Data Source [id number] 02/24/2021 10:58:00 AM EDT [facility] ([facility] Name Value Range Interpretation Code Description Data Julieth rce(s) Supporting Document(s) Ferritin [Mass/volume] in Serum or Plasma 167 ng/mL 26-388 [facility] ([facility] ID Date Data Source [id number] 02/24/2021 10:58:00 AM EDT [facility] ([facility] Name Value Range Interpretation Code Description Data Julieth rce(s) Supporting Document(s) Total Iron Binding Capacity 273 ug/dL 250-450 [facility] ([facility] Iron (Fe) 94 ug/dL 65-175 [facility] ([facility] Percent Saturation 34.4 % 19.7-50.0 [facility] ([facility] ID Date Data Source [id number] 02/24/2021 10:58:00 AM EDT [facility] ([facility] Name Value Range Interpretation Code Description Data Julieth rce(s) Supporting Document(s) Hemoglobin [Mass/volume] in Blood 15.6 g/dL 13.5-17.5 [facility] ([facility] Albumin [Mass/volume] in Serum or Plasma 3.4 GM/DL 3.2-5.2 [facility] ([facility] ID Date Data Source [id number] 02/01/2021 06:57:35 AM EDT [facility] LeDOB: 1945Provider: Lida [...] with that. 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 He was also involved in buying [...] knee scope in the past, done by [facility]. No left knee scope. He is a Holiness.PHYSICAL EXAMINATION:He is 5'7 and weighs 200 pounds. [...] and interpreted by me today. They reveal pgsy-pe-ilyq medial compartment arthritis. There is calcification under the MCL medially. 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 He's ready to get his knee fixed. I think he's a good candidate for an outpatient procedure. We will schedule it and give him all of the information today. I will see him again before the surgery. Plan Albumin; Status:Active; Requested for:[id number]; Perform:Outside Facility; Order Comments:Please fax results to [facility] at [phone]; Due:[id number]; Last Updated By:Karina Ahumada; 01/31/2021 2:31:35 PM;Ordered; [...] Performed: Due: 14Feb2021; Last Updated By: Karina Ahumada; 01/31/2021 2:31:35 PMScheduling of Initial Post-Op PT: : Knee: Please start initial post-op PT no later than 3-5 days post-op.Surgical Procedure and Date : [facility] TBDPT Protocol - TJ : [...] smoker completed Patient is a former smoker [facility] ([facility] Vital Signs ID Date Data Source UNK Name Value Range Interpretation Code Description Data Source(s) Systolic blood pressure 160 mm[Hg] 160 mm[Hg] [facility] ([facility]) Diastolic blood pressure 84 mm[Hg] 84 mm[Hg] [facility] [place] [facility]) Heart rate 66 /min 66 /min [facility]) Body height 67 [in_i] 67 [in_i] [facility] ([facility]) 5'7" Body weight 201.00 [lb_av] 201.00 [lb_av] [facility] ([facility]) Oxygen saturation in Arterial blood by Pulse oximetry 96 % 96 % [facility] ([facility]) Air Body mass index (BMI) [Ratio] 31.5 kg/m2 31.5 k g/m2 [facility] ([facility] [place] [facility]) Systolic blood pressure 142 mm[Hg] 142 mm[Hg] [facility] ([facility]) Body height 67 [in_i] 67 [in_i] [facility] ([facility]) 5'7" Body weight 200.00 [lb_av] 200.00 [lb_av] [facility] ([facility]) Oxygen saturation in Arterial blood by Pulse oximetry 97 % 97 % [facility] ([facility] [place] [facility]) Body mass index (BMI) [Ratio] 31.3 kg/m2 31.3 k g/m2 [facility] ([facility] [place] [facility]) Diastolic blood pressure 88 mm[Hg] 88 mm[Hg] [facility] ([facility] [place] [facility]) Heart rate 65 /min 65 /min [facility] ([facility]) Systolic blood pressure 196 mm[Hg] 196 mm[Hg] [facility] ([facility] Diastolic blood pressure 98 [...] [lb_av] [facility] ([facility] [place] body weight 142 [lb_av] 142 [lb_av] MED[facility] [...] 98 % [facility] ([facility] [place] body weight 142 [lb_av] 142 [lb_av] [facility] [...]
== END 2021-03-26 04:46 | disposition left against medical advice (07) ==
LOC: M ED 19:00
DX: Z53.21 Procedure and treatment not carried out due to patient leaving prior to being seen by health care provider (principal)

== ENCOUNTER → 2021-12-29 | Outpatient (CLI) | payer MEDICARE, OTHER ==
[~2021-12-29] MED LIST: METO1TAB7 PO; OXYC-517 PO
== END ==
LOC: M WUC 10:36
PROVIDERS: ATTEND Internal Medicine
DX: L03.011 Cellulitis of right finger (principal)

== ENCOUNTER → 2022-06-14 | Outpatient (CLI) | payer MEDICARE, OTHER ==
[~2022-06-14] MED LIST changes: +LEMB10TA PO; +OLME20TA2 PO; +TRAZ-257 PO
== END ==
LOC: M LABSMTC 11:27
PROVIDERS: ATTEND Anesthesiology
DX: Z01.812 Encounter for preprocedural laboratory examination (principal); Z20.822 Contact with and (suspected) exposure to COVID-19

== ENCOUNTER 2022-06-19 06:01 | Day surgery (SDC) | payer MEDICARE, OTHER ==
[~2022-06-19] VITALS: Ht 172.7 cm; Wt 94.8 kg
[2022-06-19] MEDS ORDERED: LIDOCAINE 1% SDV 30ML VIAL XX ONE (07:05)
[2022-06-19] MEDS ORDERED: SODIUM BICARBONATE 8.4% INJ 50MEQ 50ML VIAL XX ONE (07:05)
[2022-06-19] MEDS ORDERED: BUPIVACAINE HCL 0.25% 30ML VIAL As Ordered ONE (07:15)
[2022-06-19] MEDS ORDERED: BACITRACIN OINTMENT 30GM TUBE As Ordered ONE (07:16)
[2022-06-19 08:19] VITALS: BP 196/100
== END 2022-06-19 08:30 | disposition home or self-care (01) ==
LOC: M SDC 06:01
PROVIDERS: ATTEND Orthopaedic Surgery Hand Surgery
DX: C44.622 Squamous cell carcinoma of skin of right upper limb, including shoulder (principal); I10 Essential (primary) hypertension; G47.00 Insomnia, unspecified; Z79.899 Other long term (current) drug therapy

== ENCOUNTER 2024-01-11 09:58 | Observation (INO) | payer MEDICARE, OTHER ==
[~2024-01-11] VITALS: Ht 170.2 cm; Wt 92.5 kg
[~2024-01-11 09:58] MED LIST changes: -OLME20TA2 PO; +OLME20TA50 PO
[2024-01-11] MEDS ORDERED: ISOVUE-370 76% 100ML VIAL As Ordered ONE (10:12)
[2024-01-11 10:38] LABS: BASO # 0.1 10^3/uL (0.0-0.2); BASO % 1.5 % (0.0-1.0); EOS # 0.4 10^3/uL (0.0-0.5); EOS % 7.7 % (0.0-3.0); HEMATOCRIT 43.8 % (42.0-52.0); HEMOGLOBIN 15.6 g/dl (13.5-17.5); LYMPH # 1.5 10^3/uL (1.5-5.0); LYMPH % 28.9 % (24.0-44.0); MEAN CORPUSCULAR HEMOGLOBIN 33.5 pg (27.0-33.0); MEAN CORPUSCULAR HGB CONC 35.6 g/dl (32.0-36.5); MONO # 0.4 10^3/uL (0.0-0.8); MONO % 6.9 % (2.0-8.0); NEUTROPHILS # 2.9 10^3/uL (1.5-8.5); NEUTROPHILS % 54.6 % (36.0-66.0); PLATELET COUNT, AUTOMATED 213 10^3/uL (150-450); RED BLOOD COUNT 4.66 10^6/uL (4.30-6.10); WHITE BLOOD COUNT 5.2 10^3/uL (4.0-10.0)
[2024-01-11] MEDS ORDERED: ZOLP12.535 PO (10:42)
[2024-01-11 10:50] LABS: INR 1.02; PARTIAL THROMBOPLASTIN TIME 28.2 SECONDS (24.8-34.2); PROTHROMBIN TIME 13.1 SECONDS (12.5-14.5)
[2024-01-11 11:02] LABS: BLOOD UREA NITROGEN 23 MG/DL (9-23); CALCIUM LEVEL 9.7 MG/DL (8.3-10.6); CARBON DIOXIDE LEVEL 26 MMOL/L (20-31); CHLORIDE LEVEL 107 MMOL/L (98-107); CK-MB VALUE MASS < 1.0 NG/ML (<3.6); CPK CREATINE PHOSPHOKINASE 69 U/L (46-171); CREATININE FOR GFR 1.17 MG/DL (0.70-1.30); GLOMERULAR FILTRATION RATE > 60.0 (>42); GLUCOSE, FASTING 123 MG/DL (74-106); MB/CK RELATIVE INDEX 1.44 (< OR =4); POTASSIUM SERUM 4.1 MMOL/L (3.5-5.1); SODIUM LEVEL 138 MMOL/L (136-145)
[2024-01-11] MEDS ORDERED: OLME5TAB24 PO (11:38)
[2024-01-11] MEDS: ASPIRIN 81MG ENTERIC TABLET PO STA (11:39)
[2024-01-11] MEDS: CLOPIDOGREL 75 MG TAB PO STA (11:39)
[2024-01-11] MEDS ORDERED: KP F1200 PO (11:39)
[2024-01-11] MEDS ORDERED: HOME MED LIST COMPLETE! XX SCH (11:40)
[2024-01-11 13:09] LABS: CHOLESTEROL LEVEL 215 MG/DL (<200); CHOLESTEROL RISK RATIO 2.91 (<5); HDL CHOLESTEROL 73.8 MG/DL (>40); LDL CHOLESTEROL 112.8 MG/DL (<100); NON-HDL-C 141.2 MG/DL; TRIGLYCERIDES LEVEL 142 MG/DL (<150)
[2024-01-11 13:16] LABS: HEMOGLOBIN A1c 4.8 % (4.0-6.0)
[2024-01-11] MEDS: ENOXAPARIN 40MG/0.4ML SYRINGE (J1650 PER 10MG) SC SCH (16:00)
[2024-01-11] MEDS: ACETAMINOPHEN TAB 650MG DOSE (2X325MG) PO PRN (16:33)
[2024-01-11] MEDS: NS 1,000 ML IV SCH (17:04)
[2024-01-11 21:06] VITALS: BP 180/88; TEMP 97.4; O2SAT 98
[2024-01-11] MEDS: ATORVASTATIN 20 MG TAB PO SCH (21:22)
[2024-01-11] MEDS: traZODone 50 MG TAB PO SCH (21:22)
[2024-01-12 00:30] VITALS: BP 186/84; TEMP 97.5; O2SAT 95
[2024-01-12] MEDS ORDERED: PILL CUTTER 1 EACH XX PRN (01:25)
[2024-01-12] MEDS: zolPIDEM TARTRATE 5 MG TAB PO ONE (01:48)
[2024-01-12 04:00] VITALS: BP 178/83; TEMP 98.8; O2SAT 95
[2024-01-12 07:34] VITALS: BP 150/80; TEMP 97.7; O2SAT 96
[2024-01-12 08:12] LABS: HEMATOCRIT 40.3 % (42.0-52.0); HEMOGLOBIN 14.4 g/dl (13.5-17.5); MEAN CORPUSCULAR HEMOGLOBIN 32.9 pg (27.0-33.0); MEAN CORPUSCULAR HGB CONC 35.7 g/dl (32.0-36.5); PLATELET COUNT, AUTOMATED 198 10^3/uL (150-450); RED BLOOD COUNT 4.38 10^6/uL (4.30-6.10); WHITE BLOOD COUNT 4.9 10^3/uL (4.0-10.0)
[2024-01-12 08:55] LABS: ALBUMIN 3.5 G/DL (3.2-5.2); ALKALINE PHOSPHATASE 53 U/L (46-116); ALT/SGPT 13 U/L (7.0-40); AST/SGOT 12 U/L (<34); BILIRUBIN,TOTAL 0.6 MG/DL (0.3-1.2); BLOOD UREA NITROGEN 18 MG/DL (9-23); CALCIUM LEVEL 8.5 MG/DL (8.3-10.6); CARBON DIOXIDE LEVEL 25 MMOL/L (20-31); CHLORIDE LEVEL 111 MMOL/L (98-107); CREATININE FOR GFR 1.06 MG/DL (0.70-1.30); GLOMERULAR FILTRATION RATE > 60.0 (>42); GLUCOSE, FASTING 95 MG/DL (74-106); MAGNESIUM LEVEL 1.7 MG/DL (1.8-2.4); POTASSIUM SERUM 4.1 MMOL/L (3.5-5.1); SODIUM LEVEL 142 MMOL/L (136-145); TOTAL PROTEIN 6.1 G/DL (5.7-8.2)
[2024-01-12] MEDS ORDERED: OLMESARTAN MEDOXOMIL 20 MG TAB (BENICAR) PO SCH (09:00)
[2024-01-12] MEDS: CLOPIDOGREL 75 MG TAB PO SCH (09:52)
[2024-01-12 09:53] VITALS: BP 150/80
[2024-01-12] MEDS: ASPIRIN 81MG ENTERIC TABLET PO SCH (09:53)
[2024-01-12] MEDS: ALPRAZolam 0.5 MG TAB PO STA (09:53)
[2024-01-12] MEDS: OLMESARTAN MEDOXOMIL 20 MG TAB (BENICAR) PO SCH (09:53)
[2024-01-12 11:51] VITALS: BP 158/72; TEMP 97.5; O2SAT 97
[2024-01-12] MEDS ORDERED: ATOR1TAB21 PO (12:20)
[2024-01-12] MEDS ORDERED: ASPI81TAEC PO (12:20)
[2024-01-12] MEDS ORDERED: CLOP75TA2 PO (12:20)
[2024-01-12] MEDS ORDERED: OLME20TA55 PO (12:20)
[2024-01-12] MEDS ORDERED: MAGN400T2 PO (12:38)
[2024-01-13] MEDS ORDERED: AMLO10TA PO (19:10)
[2024-01-13] MEDS ORDERED: HYDR25TA87 PO (19:10)
== END 2024-01-12 14:00 | disposition home or self-care (01) ==
LOC: M ED 09:58 → M ED INP 12:21 → M PCU 21:06
PROVIDERS: ADMIT Preventive Medicine Undersea and Hyperbaric Medicine; ATTEND Preventive Medicine Undersea and Hyperbaric Medicine
DX: R53.1 Weakness (principal); G81.91 Hemiplegia, unspecified affecting right dominant side; R26.89 Other abnormalities of gait and mobility; I10 Essential (primary) hypertension; F40.240 Claustrophobia; E78.5 Hyperlipidemia, unspecified; M19.90 Unspecified osteoarthritis, unspecified site; G47.30 Sleep apnea, unspecified; Z96.659 Presence of unspecified artificial knee joint; Z79.899 Other long term (current) drug therapy
CPT/HCPCS: 36415; 70450; 70496; 70498; 71045; 80047; 80048; 80053; 80061; 82550; 82553; 83036; 83735; 84484; 85025; 85027; 85610; 85730; 86850; 86900; 86901; 93005; 93041; 93306; 94760; 96360; 96361; 96372; 97161; 99285; G0378; J1650; Q9967

== ENCOUNTER 2024-01-13 15:46 | Emergency (ER) | payer MEDICARE, OTHER ==
[~2024-01-13] VITALS: Ht 170.2 cm; Wt 90.9 kg
[~2024-01-13 15:46] MED LIST changes: +ASPI81TAEC PO; +ATOR1TAB21 PO; +CLOP75TA2 PO; +KP F1200 PO; +MAGN400T2 PO; +OLME20TA55 PO; +OLME5TAB24 PO; +ZOLP12.535 PO
[2024-01-13] MEDS ORDERED: ISOVUE-370 76% 100ML VIAL As Ordered ONE (16:03)
[2024-01-13 16:19] LABS: BASO # 0.1 10^3/uL (0.0-0.2); BASO % 1.2 % (0.0-1.0); EOS # 0.4 10^3/uL (0.0-0.5); EOS % 6.1 % (0.0-3.0); HEMATOCRIT 42.8 % (42.0-52.0); HEMOGLOBIN 15.1 g/dl (13.5-17.5); LYMPH # 1.4 10^3/uL (1.5-5.0); LYMPH % 23.5 % (24.0-44.0); MEAN CORPUSCULAR HEMOGLOBIN 32.5 pg (27.0-33.0); MEAN CORPUSCULAR HGB CONC 35.3 g/dl (32.0-36.5); MONO # 0.5 10^3/uL (0.0-0.8); MONO % 8.6 % (2.0-8.0); NEUTROPHILS # 3.7 10^3/uL (1.5-8.5); NEUTROPHILS % 60.4 % (36.0-66.0); PLATELET COUNT, AUTOMATED 221 10^3/uL (150-450); RED BLOOD COUNT 4.65 10^6/uL (4.30-6.10)
[2024-01-13] MEDS: NS 1,000 ML IV SCH (16:24)
[2024-01-13 16:32] LABS: INR 0.99; PARTIAL THROMBOPLASTIN TIME 27.6 SECONDS (24.8-34.2); PROTHROMBIN TIME 12.8 SECONDS (12.5-14.5)
[2024-01-13 16:56] LABS: CPK CREATINE PHOSPHOKINASE 85 U/L (46-171)
[2024-01-13 16:57] LABS: ALBUMIN 3.8 G/DL (3.2-5.2); ALKALINE PHOSPHATASE 76 U/L (46-116); ALT/SGPT 19 U/L (7.0-40); AST/SGOT 19 U/L (<34); BILIRUBIN,TOTAL 0.4 MG/DL (0.3-1.2); BLOOD UREA NITROGEN 22 MG/DL (9-23); CALCIUM LEVEL 8.9 MG/DL (8.3-10.6); CARBON DIOXIDE LEVEL 25 MMOL/L (20-31); CHLORIDE LEVEL 111 MMOL/L (98-107); CK-MB VALUE MASS 1.1 NG/ML (<3.6); CREATININE FOR GFR 1.09 MG/DL (0.70-1.30); GLOMERULAR FILTRATION RATE > 60.0 (>42); GLUCOSE, FASTING 108 MG/DL (74-106); MAGNESIUM LEVEL 1.8 MG/DL (1.8-2.4); MB/CK RELATIVE INDEX 1.29 (< OR =4); SODIUM LEVEL 140 MMOL/L (136-145); TOTAL PROTEIN 6.4 G/DL (5.7-8.2)
[2024-01-13 17:48] VITALS: BP 201/94
[2024-01-13] MEDS: **hydrALAZINE HCL** 25 MG TAB PO ONE (17:48)
[2024-01-13] MEDS ORDERED: HYDR25TA87 PO (19:10)
[2024-01-13] MEDS ORDERED: AMLO10TA PO (19:10)
[2024-01-13 19:40] VITALS: BP 169/74; TEMP 97.6; O2SAT 97
== END 2024-01-13 19:42 | disposition home or self-care (01) ==
LOC: M ED 15:46
DX: I16.0 Hypertensive urgency (principal); Z79.899 Other long term (current) drug therapy
CPT/HCPCS: 70450; 70496; 70498; 71045; 80047; 80053; 82550; 82553; 83735; 84484; 85025; 85610; 85730; 93005; 93041; 94760; 99285; Q9967